=== PATIENT | female | born 1960 | race Caucasian/White ===

== ENCOUNTER 2020-03-22 12:47 | Outpatient (REF) | payer MEDICARE, SELFPAY ==
[2020-03-22 14:03] LABS: MANUAL DIFF FLAG NO
[2020-03-22 14:34] LABS: Estimated Average Glucose 108 mg/dL; Hemoglobin A1c % 5.4 %
[2020-03-22 14:39] LABS: Basophils Percent Auto 0.6 % (0-2); Eosinophils Absolute Auto 0.1 X10*3/uL (0.0-0.4); Eosinophils Percent Auto 1.6 % (0-4); Hematocrit 41.4 % (37-47); Hemoglobin 13.2 g/dl (12.0-16.0); Imm Gran Abs Auto 0.04 X10*3/uL (0.00-0.03); Imm Gran Pct Auto 0.8 % (0.0-0.4); Lymphocytes Absolute Auto 1.6 X10*3/uL (1.2-4.9); Lymphocytes Percent Auto 31.8 % (20-40); Mean Corpuscular HGB Conc 31.9 g/dl (31.0-35.0); Mean Corpuscular Hemoglobin 29.5 pg (27.0-33.0); Mean Corpuscular Volume 92.6 fL (80-98); Monocytes Absolute Auto 0.2 X10*3/uL (0.1-1.2); Monocytes Percent Auto 3.4 % (2-11); Neutrophils Absolute Auto 3.1 X10*3/uL (2.0-8.3); Neutrophils Percent Auto 61.8 % (45-73); Platelet Count 216 X10*3/uL (160-400); Red Blood Count 4.47 X10*6/uL (4.20-5.50); Red Cell Distribution Width 13.2 % (11.0-16.0); White Blood Count 4.9 X10*3/uL (4.8-10.8)
[2020-03-22 15:19] LABS: Anion Gap 11 (12-20); Blood Urea Nitrogen 10 mg/dL (9-16); Calcium 8.8 mg/dL (8.4-10.2); Carbon Dioxide 25 mmol/L (22-29); Chloride 111 mmol/L (96-108); Cholesterol 202 mg/dL; Estimated Glomerular Filt Rate > 60; Glucose Fasting 121 mg/dL (60-99); HDL Cholesterol 41 mg/dL; LDL Cholesterol Calculated 134 mg/dl; Potassium 3.9 mmol/l (3.3-5.1); Sodium 143 mmol/L (135-145); Triglycerides 138 mg/dL
== END 2020-03-22 12:48 | disposition home or self-care (01) ==
LOC: HO.HMGCLDS 12:47
PROVIDERS: PCP Internal Medicine; Visit Provider Internal Medicine
DX: E78.9 Disorder of lipoprotein metabolism, unspecified (principal); F31.9 Bipolar disorder, unspecified; F41.1 Generalized anxiety disorder; R73.03 Prediabetes; G47.00 Insomnia, unspecified; I10 Essential (primary) hypertension
CPT/HCPCS: 36415; 80048; 80061; 83036; 85025

== ENCOUNTER 2020-09-24 13:19 | Outpatient (REF) | payer MEDICARE, SELFPAY ==
[2020-09-24 14:00] LABS: MANUAL DIFF FLAG NO
[2020-09-24 14:05] LABS: Basophils Percent Auto 0.7 % (0-2); Eosinophils Absolute Auto 0.1 X10*3/uL (0.0-0.4); Eosinophils Percent Auto 1.2 % (0-4); Hematocrit 42.2 % (37-47); Hemoglobin 13.7 g/dl (12.0-16.0); Imm Gran Abs Auto 0.01 X10*3/uL (0.00-0.03); Imm Gran Pct Auto 0.2 % (0.0-0.4); Lymphocytes Absolute Auto 1.5 X10*3/uL (1.2-4.9); Lymphocytes Percent Auto 35.2 % (20-40); Mean Corpuscular HGB Conc 32.5 g/dl (31.0-35.0); Mean Corpuscular Hemoglobin 29.1 pg (27.0-33.0); Mean Corpuscular Volume 89.6 fL (80-98); Mean Platelet Volume 9.6 fL (9.4-12.3); Monocytes Absolute Auto 0.1 X10*3/uL (0.1-1.2); Monocytes Percent Auto 3.1 % (2-11); Neutrophils Absolute Auto 2.5 X10*3/uL (2.0-8.3); Neutrophils Percent Auto 59.6 % (45-73); Platelet Count 179 X10*3/uL (160-400); Red Blood Count 4.71 X10*6/uL (4.20-5.50); Red Cell Distribution Width 13.1 % (11.0-16.0); White Blood Count 4.2 X10*3/uL (4.8-10.8)
[2020-09-24 14:19] LABS: Estimated Average Glucose 108 mg/dL; Hemoglobin A1c % 5.4 %
[2020-09-24 14:33] LABS: Alanine Aminotransferase 12 U/L (0-31); Albumin Level 4.3 g/dL (3.5-5.0); Alkaline Phosphatase 60 U/L (39-117); Anion Gap 13 (12-20); Aspartate Amino Transferase 14 U/L (5-31); Bilirubin Total 0.5 mg/dL (0.0-1.0); Blood Urea Nitrogen 12 mg/dL (9-16); Calcium 9.6 mg/dL (8.4-10.2); Carbon Dioxide 23 mmol/L (22-29); Chloride 112 mmol/L (96-108); Estimated Glomerular Filt Rate > 60; Glucose Random 120 mg/dL (60-115); Sodium 144 mmol/L (135-145)
[2020-09-25 08:52] LABS: LDL Cholesterol Direct 124 mg/dL (<100)
== END 2020-09-24 13:20 | disposition home or self-care (01) ==
LOC: HO.HMGCLDS 13:19
PROVIDERS: PCP Internal Medicine; Visit Provider Internal Medicine
DX: E78.9 Disorder of lipoprotein metabolism, unspecified (principal); I10 Essential (primary) hypertension; R73.03 Prediabetes; F33.9 Major depressive disorder, recurrent, unspecified; F41.1 Generalized anxiety disorder
CPT/HCPCS: 36415; 80053; 83036; 83721; 85025

== ENCOUNTER 2021-03-23 11:08 | Outpatient (REF) | payer MEDICARE, SELFPAY ==
--- NOTE | ~2021-03-23 | US_ITS ---
EXAMINATION: US RETROPERITONEAL LIMITED (RENAL ONLY) CLINICAL INFORMATION: Acute right flank pain. COMPARISON: None TECHNIQUE: Renal ultrasound FINDINGS: RIGHT KIDNEY: 12.0 x 4.5 x 5.0 cm (SAG x AP x TRV). The kidney is normal in size, contour, and echogenicity. Renal cortical thickness is normal. No calculi or focal parenchymal lesions. There is mild fullness of the upper collecting system without definite hydronephrosis.. LEFT KIDNEY: 11.5 x 5.0 x 4.8 cm (SAG x AP x TRV). The kidney is normal in size, contour, and echogenicity. Renal cortical thickness is normal. No calculi or focal parenchymal lesions. No hydronephrosis. Urinary bladder was empty. US/US renal BI IMPRESSION: Mild fullness of the right upper collecting system. No renal calculi appreciated..
== END 2021-03-23 11:09 | disposition home or self-care (01) ==
LOC: HO.HMGCX 11:08
PROVIDERS: PCP Internal Medicine; Visit Provider Nurse Practitioner Family
DX: R10.9 Unspecified abdominal pain (principal)
CPT/HCPCS: 76775

== ENCOUNTER 2021-08-13 10:56 | Outpatient (REF) | payer MEDICARE, SELFPAY ==
[2021-08-13 13:13] LABS: MANUAL DIFF FLAG NO
[2021-08-13 13:30] LABS: Eosinophils Percent Auto 0.8 % (0-4); Hematocrit 43.6 % (37.0-47.0); Hemoglobin 14.6 g/dl (12.0-16.0); Imm Gran Abs Auto 0.02 X10*3/uL (0.00-0.03); Imm Gran Pct Auto 0.5 % (0.0-0.4); Lymphocytes Absolute Auto 1.1 X10*3/uL (1.2-4.9); Lymphocytes Percent Auto 28.1 % (20-40); Mean Corpuscular HGB Conc 33.5 g/dl (31.0-35.0); Mean Corpuscular Hemoglobin 29.8 pg (27.0-33.0); Mean Platelet Volume 10.1 fL (9.4-12.3); Monocytes Absolute Auto 0.2 X10*3/uL (0.1-1.2); Monocytes Percent Auto 4.1 % (2-11); Neutrophils Absolute Auto 2.6 x10*3/uL (2.0-8.3); Neutrophils Percent Auto 65.5 % (45-73); Platelet Count 206 X10*3/uL (160-400); Red Cell Distribution Width 12.5 % (11.0-16.0)
[2021-08-13 13:31] LABS: Estimated Average Glucose 108 mg/dL; Hemoglobin A1c % 5.4 %
[2021-08-13 13:34] LABS: Alanine Aminotransferase 16 U/L (0-31); Albumin Level 4.3 g/dL (3.5-5.0); Alkaline Phosphatase 59 U/L (39-117); Anion Gap 13 (12-20); Aspartate Amino Transferase 17 U/L (5-31); Bilirubin Total 0.7 mg/dL (0.0-1.0); Blood Urea Nitrogen 14 mg/dL (9-16); Calcium 9.6 mg/dL (8.4-10.2); Carbon Dioxide 26 mmol/L (22-29); Chloride 103 mmol/L (96-108); Cholesterol 206 mg/dL; Estimated Glomerular Filt Rate 58; Glucose Fasting 132 mg/dL (60-99); HDL Cholesterol 42 mg/dL; LDL Cholesterol Calculated 139 mg/dl; Potassium 4.1 mmol/L (3.3-5.1); Sodium 138 mmol/L (135-145); Total Protein 7.1 g/dL (6.5-8.0); Triglycerides 128 mg/dL
== END 2021-08-13 10:57 | disposition home or self-care (01) ==
LOC: HO.HMGCLDS 10:56
PROVIDERS: PCP Internal Medicine; Visit Provider Internal Medicine
DX: F31.9 Bipolar disorder, unspecified (principal); G47.00 Insomnia, unspecified; I10 Essential (primary) hypertension; R73.03 Prediabetes; E78.9 Disorder of lipoprotein metabolism, unspecified
CPT/HCPCS: 36415; 80053; 80061; 83036; 84443; 85025

== ENCOUNTER 2022-05-02 10:36 | Outpatient (REF) | payer MEDICARE, SELFPAY ==
[2022-05-02 11:40] LABS: MANUAL DIFF FLAG NO
[2022-05-02 11:58] LABS: Basophils Percent Auto 0.8 % (0-2); Eosinophils Absolute Auto 0.1 X10*3/uL (0.0-0.4); Eosinophils Percent Auto 1.3 % (0-4); Hematocrit 41.7 % (37.0-47.0); Hemoglobin 13.9 g/dl (12.0-16.0); Lymphocytes Percent Auto 26.4 % (20-40); Mean Corpuscular HGB Conc 33.3 g/dl (31.0-35.0); Mean Corpuscular Hemoglobin 29.4 pg (27.0-33.0); Mean Corpuscular Volume 88.2 fL (80.0-98.0); Mean Platelet Volume 10.3 fL (9.4-12.3); Monocytes Absolute Auto 0.2 X10*3/uL (0.1-1.2); Monocytes Percent Auto 5.5 % (2-11); Neutrophils Absolute Auto 2.5 x10*3/uL (2.0-8.3); Platelet Count 200 X10*3/uL (160-400); Red Blood Count 4.73 X10*6/uL (4.20-5.50); Red Cell Distribution Width 12.6 % (11.0-16.0); White Blood Count 3.8 X10*3/uL (4.8-10.8)
[2022-05-02 12:19] LABS: Estimated Average Glucose 108 mg/dL; Hemoglobin A1c % 5.4 %
[2022-05-02 12:49] LABS: Alanine Aminotransferase 12 U/L (0-31); Albumin Level 4.3 g/dL (3.5-5.0); Alkaline Phosphatase 60 U/L (39-117); Anion Gap 13 (12-20); Aspartate Amino Transferase 17 U/L (5-31); Bilirubin Total 0.5 mg/dL (0.0-1.0); Blood Urea Nitrogen 17 mg/dL (9-16); Calcium 9.5 mg/dL (8.4-10.2); Carbon Dioxide 32 mmol/L (22-29); Chloride 101 mmol/L (96-108); Cholesterol 172 mg/dL; Estimated Glomerular Filt Rate 55; Glucose Fasting 111 mg/dL (60-99); HDL Cholesterol 38 mg/dL; LDL Cholesterol Calculated 108 mg/dl; Potassium 3.6 mmol/L (3.3-5.1); Sodium 142 mmol/L (135-145); Total Protein 6.7 g/dL (6.5-8.0); Triglycerides 132 mg/dL
== END 2022-05-02 10:37 | disposition home or self-care (01) ==
LOC: HO.HMGCLDS 10:36
PROVIDERS: PCP Internal Medicine; Visit Provider Internal Medicine
DX: F31.9 Bipolar disorder, unspecified (principal); F41.1 Generalized anxiety disorder; G47.00 Insomnia, unspecified; I10 Essential (primary) hypertension; R73.03 Prediabetes
CPT/HCPCS: 36415; 80053; 80061; 83036; 85025

== ENCOUNTER 2022-09-27 14:45 | Outpatient (REF) | payer MEDICARE, SELFPAY ==
--- NOTE | ~2022-09-27 | US_ITS ---
EXAMINATION: US RETROPERITONEAL LIMITED (RENAL ONLY) CLINICAL INFORMATION: Acute right flank pain. COMPARISON: Previous renal ultrasound from 2020 TECHNIQUE: Grayscale and color imaging of the kidneys FINDINGS: RIGHT KIDNEY: 12 x 4 x 6 cm (SAG x AP x TRV). The kidney is normal in size, contour, and echogenicity. Renal cortical thickness is normal. No calculi or focal parenchymal lesions. No hydronephrosis. LEFT KIDNEY: 12 x 5 x 4.6 cm (SAG x AP x TRV). The kidney is normal in size, contour, and echogenicity. Renal cortical thickness is normal. No calculi or focal parenchymal lesions. No hydronephrosis. US/US renal BI IMPRESSION: Unremarkable exam.
== END 2022-09-27 14:46 | disposition home or self-care (01) ==
LOC: HO.HMGCX 14:45
PROVIDERS: PCP Internal Medicine; Visit Provider Internal Medicine
DX: R10.9 Unspecified abdominal pain (principal); R31.9 Hematuria, unspecified
CPT/HCPCS: 76775; 87086

== ENCOUNTER 2022-10-27 10:44 | Outpatient (REF) | payer MEDICARE, SELFPAY ==
[2022-10-27 15:05] LABS: Estimated Average Glucose 100 mg/dL; Hemoglobin A1c % 5.1 %
[2022-10-27 15:15] LABS: Alanine Aminotransferase 15 U/L (0-31); Albumin Level 4.1 g/dL (3.5-5.0); Alkaline Phosphatase 59 U/L (39-117); Anion Gap 11 (12-20); Aspartate Amino Transferase 16 U/L (5-31); Bilirubin Total 0.4 mg/dL (0.0-1.0); Blood Urea Nitrogen 17 mg/dL (9-16); Calcium 9.4 mg/dL (8.4-10.2); Carbon Dioxide 29 mmol/L (22-29); Chloride 103 mmol/L (96-108); Estimated Glomerular Filt Rate > 60; Glucose Random 97 mg/dL (60-115); Potassium 4.2 mmol/L (3.3-5.1); Sodium 139 mmol/L (135-145); Total Protein 6.9 g/dL (6.5-8.0)
== END 2022-10-27 10:45 | disposition home or self-care (01) ==
LOC: HO.HMGCLDS 10:44
PROVIDERS: PCP Internal Medicine; Visit Provider Internal Medicine
DX: E66.9 Obesity, unspecified (principal); F31.9 Bipolar disorder, unspecified; F41.1 Generalized anxiety disorder; G47.00 Insomnia, unspecified; I10 Essential (primary) hypertension; R73.03 Prediabetes
CPT/HCPCS: 36415; 80053; 83036

== ENCOUNTER 2022-10-31 11:17 | Outpatient (AMB) | payer MEDICARE, SELFPAY ==
[2022-10-31 11:25] VITALS: BP 142/84; PULSE 68; O2SAT 96
--- NOTE | 2022-10-31 11:25 | A.OFFPC_ITS ---
Vital Signs 10/31/22 11:25 Height 5 ft 6 in BP 142/84 H Blood Pressure Location Lt brachial Position Sitting Pulse 68 Pulse Source Pulse Oximeter Pulse Oximetry (%) 96 Oxygen Delivery Method Room Air Intake Visit Reasons: Annual PE Allergies No Known Allergies [No Known Allergies*] Allergy (Verified 10/31/22 11:25) Medication List - Last Reconciled 10/31/22 by Odin Marie MD atenolol 25 mg PO DAILY 90 days lisinopril 10 mg PO DAILY 90 days lorazepam 1 mg PO BID 30 days morphine ER 60 mg PO BID nitrofurantoin monohyd/m-cryst 100 mg (Macrobid) 100 mg PO Q12H 5 days oxycodone 5 mg PO BID PRN pravastatin 80 mg PO DAILY 90 days quetiapine (Seroquel) 100 mg PO TID 90 days Tobacco use date assessed: 10/31/22 Dental Screening Dental Screen Date: 10/31/22 Did you have a dental visit in the last 12 months?: Yes Did you have a dental problem in the last 6 months where you did not have access to dental care?: No Was dental information given to patient?: No HPI Annual PE HPI Details Patient is 62-year-old female came in today for her physical exam Patient is due for mammogram order placed Colonoscopy was 7 years ago patient says that she is due in 2025 Patient had hysterectomy secondary to fibroid she no longer having Pap smears. Blood pressure is slightly elevated today at 01:42 systolic we will continue to monitor she is taking all her medications regularly Labs done recently reviewed with the patient All psychiatric medications through Psychiatry Have difficulty losing weight BMI is elevated Requesting a started in powder for tenia corporis which I have sent for her Follow-up 6 month physical exam 1 year [facility] Medical History Anxiety, generalized Bipolar 1 disorder Depression, major, recurrent Hypertension, essential Insomnia Lipid disorder Obesity Postlaminectomy kyphosis Pre-diabetes Surgical History History of colonoscopy History of hernia repair History of lumbar fusion History of partial hysterectomy Hx of discectomy Family History Father HTN (hypertension) Alzheimer's disease Mother No problems noted. Brother No problems noted. Sister No problems noted. Maternal Grandfather No problems noted. Maternal Grandmother No problems noted. Paternal Grandfather No problems noted. Paternal Grandmother No problems noted. Social History Housing: Condominium Alcohol intake: never Patient Tobacco Use Status: Never used Tobacco e-Cigarette/Vaping Use: Never Used Second Hand Smoke Exposure: No service: No Current occupational status: retired Cognitive needs: No Hearing needs: No Vision needs: No Questionnaire Thrive Questionnaire Date Thrive assessed: 05/02/22 AUDIT C Alcohol Use Questionnaire (AUDIT-C) 1. How often do you have a drink containing alcohol?: Never 3. How often do you have six or more drinks on one occasion?: Never Total Score: 0 Score Reviewed/Action Taken: Yes HUSEYIN-7 AMB Questionnaire HUSEYIN-7 Date HUSEYIN - 7 assessed: 05/02/22 Source: Developed by Drs. Tani Haq, Nayely Mccoy, Frantz Mauro and colleagues, with an educational adam from [employer]. Review of Systems Const Denies chills, Denies fever(s) and Denies headache(s) Eyes Denies blurry vision ENT Denies headache(s), Denies nasal discharge, Denies nasal obstruction, Denies odynophagia and Denies sinus pain Card Denies chest pain at rest and Denies chest pain with activity Resp Denies cough and Denies hemoptysis GI Denies diarrhea, Denies odynophagia, Denies vomiting and Denies hematemesis Reports as per HPI Musc Denies abnormal gait Skin/Breast Reports as per HPI Neuro Denies Neuro-related abnormal movements, Denies Abnormal speech present, Denies abnormal gait, Denies headache(s) and Denies Sensory deficit (Neuro) Psych Denies mood swings and Denies paranoia Endo Reports as per HPI Kike/Lymph Reports as per HPI Aller/Immun Reports as per HPI Physical exam (Primary Care) Vital Signs: Last Vital Signs Pulse 68 10/31/22 11:25 BP 142/84 H 10/31/22 11:25 Pulse Ox 96 10/31/22 11:25 Oxygen Delivery Method Room Air 10/31/22 11:25 Tobacco/Smoking Status: Tobacco use Status Tobacco use date assessed 10/31/22 10/31/22 11:26 Patient Tobacco Use Status Never used Tobacco 10/31/22 11:26 e-Cigarette/Vaping Use Never Used 10/31/22 11:26 Thrive Assessment: Date of Thrive Assessment Date Thrive assessed 05/02/22 10/31/22 11:26 Const General: cooperative, comfortable and no acute distress Orientation/consciousness: patient oriented x3 HENMT Head: Yes normocephalic and Yes atraumatic Eyes General: appearance normal, both eyes and all related structures Pupils: Equal, round and reactive pupils present EOM: EOMs intact bilaterally Neck Neck: Yes supple and No lymphadenopathy Thyroid: Thyroid normal Lymphatic: no lymphadenopathy noted Chest Breast/axilla palpation: normal palpation of the breasts Resp Effort & Inspection: normal respiratory effort and able to speak in complete sentences Auscultation: clear to auscultation bilaterally Cardio Heart sounds: S1 normal heart sound present and S2 normal heart sound present GI Palpation (GI): Soft to palpation and nontender Auscultation: normal bowel sounds General: Yes no CVA tenderness Back/Spine/Pelvis Back: no CVA tenderness Skin General skin exam: elasticity normal and turgor normal Neuro General: patient oriented x3 and gait normal Cranial nerves: Yes Equal, round and reactive pupils present Speech: No Abnormal speech present Sensory Exam: No Sensory deficit (Neuro) Coordination: tandem gait normal and Romberg test negative Extrem General: Yes normal exam except as noted and No edema Assessment and Plan Assessment & Plan (1) Encounter for general adult medical examination with abnormal findings: Code(s): Z00.01 - Encounter for general adult medical examination with abnormal findings (2) Hypertension, essential: Code(s): I10 - Essential (primary) hypertension (3) Pre-diabetes: Code(s): R73.03 - Prediabetes (4) Depression, major, recurrent: Code(s): F33.9 - Major depressive disorder, recurrent, unspecified (5) Bipolar 1 disorder: Code(s): F31.9 - Bipolar disorder, unspecified (6) Insomnia: Code(s): G47.00 - Insomnia, unspecified (7) Anxiety, generalized: Code(s): F41.1 - Generalized anxiety disorder (8) Obesity: Code(s): E66.9 - Obesity, unspecified Plan Patient is 62-year-old female came in today for her physical exam Patient is due for mammogram order placed Colonoscopy was 7 years ago patient says that she is due in 2025 Patient had hysterectomy secondary to fibroid she no longer having Pap smears. Blood pressure is slightly elevated today at 01:42 systolic we will continue to monitor she is taking all her medications regularly Labs done recently reviewed with the patient All psychiatric medications through Psychiatry Have difficulty losing weight BMI is elevated Requesting a started in powder for tenia corporis which I have sent for her Follow-up 6 month physical exam 1 year Orders: Orders MM tomosynthesis screening BI Today Z12.31 - Encounter for screening mammogram for malignant neoplasm of breast Medications: New nystatin 1 appl topical DAILY 60 grams 2RF 30 days B35.4 - Tinea corporis Coding Level of Care Code Est Pt Prev Care 40-64y(49922) Diagnoses Encounter for general adult medical examination with abnormal findings Z00.01 Hypertension, essential I10 Pre-diabetes R73.03 Depression, major, recurrent F33.9 Bipolar 1 disorder F31.9 Insomnia G47.00 Anxiety, generalized F41.1 Obesity E66.9
== END 2022-10-31 11:47 | disposition home or self-care (01) ==
PROVIDERS: Visit Provider Internal Medicine
DX: Z00.01 Encounter for general adult medical examination with abnormal findings (principal); I10 Essential (primary) hypertension; R73.03 Prediabetes; F33.9 Major depressive disorder, recurrent, unspecified; F31.9 Bipolar disorder, unspecified; G47.00 Insomnia, unspecified; F41.1 Generalized anxiety disorder; E66.9 Obesity, unspecified
CPT/HCPCS: 99396

== ENCOUNTER 2023-05-01 10:00 | Outpatient (AMB) | payer MEDICARE, SELFPAY ==
--- NOTE | 2023-05-01 10:05 | A.OFFPC_ITS ---
Vital Signs 05/01/23 10:06 Height 5 ft 6 in BMI Reason not done Patient refused/unable BP 130/80 Blood Pressure Location Lt brachial Position Sitting Pulse 62 Pulse Source Pulse Oximeter Pulse Oximetry (%) 96 Oxygen Delivery Method Room Air Intake Visit Reasons: 6 MON FUP + DISCUSS COLOGUARD Allergies No Known Allergies [No Known Allergies*] Allergy (Verified 05/01/23 10:05) Medication List - Last Reconciled 05/01/23 by Odin Marie MD atenolol 25 mg PO DAILY 90 days lisinopril 10 mg PO DAILY 90 days lorazepam 1 mg PO BID 30 days morphine ER 60 mg PO BID nystatin 1 appl topical DAILY 30 days oxycodone 5 mg PO BID PRN pravastatin 80 mg PO DAILY 90 days quetiapine (Seroquel) 100 mg PO TID 90 days Tobacco use date assessed: 05/01/23 Fall risk assessment: 1 Fall in past year Last assessed Fall Risk: 05/01/23 Dental Screening Dental Screen Date: 05/01/23 Did you have a dental visit in the last 12 months?: Yes Did you have a dental problem in the last 6 months where you did not have access to dental care?: No Was dental information given to patient?: Patient has dentist HPI 6 MON FUP + DISCUSS COLOGUARD HPI Details Patient is a 63-year-old female came in today for her regular appointment Patient is due for colonoscopy but she does not want to do that She said that since the age of 49 she has done 3 of them, 1st time she had a colonoscopy polyps were found So she ended up having colonoscopy again in 3 years which did not show any polyps, and then again in 3 years which also did not show any polyps She is requesting Cologuard test Patient had twisted her right ankle end of March and encountered a fracture she is currently seeing Dr. Burger at [facility] and have a splint on Hypertension: Blood pressure is stable patient is on lisinopril 10 mg , and atenolol 25 mg daily Lipid disorder: Continue pravastatin 80 mg daily. Labs are due order placed Today she is sitting in a wheelchair we did not do a weight She is seeing psychiatrist Dr. Quan Hubbard in [place] for her psychiatric medications Follow-up 4 months [facility] Medical History Bipolar 1 disorder Depression, major, recurrent Postlaminectomy kyphosis Obesity Pre-diabetes Insomnia Anxiety, generalized Lipid disorder Hypertension, essential Surgical History History of colonoscopy History of hernia repair History of partial hysterectomy Hx of discectomy History of lumbar fusion Family History Father HTN (hypertension) Alzheimer's disease Mother No problems noted. Brother No problems noted. Sister No problems noted. Maternal Grandfather No problems noted. Maternal Grandmother No problems noted. Paternal Grandfather No problems noted. Paternal Grandmother No problems noted. Social History Housing: Condominium Alcohol intake: never Patient Tobacco Use Status: Never used Tobacco e-Cigarette/Vaping Use: Never Used Second Hand Smoke Exposure: No service: No Current occupational status: retired Cognitive needs: No Hearing needs: No Vision needs: No Questionnaire Thrive Questionnaire Date Thrive assessed: 05/02/22 AUDIT C Alcohol Use Questionnaire (AUDIT-C) 1. How often do you have a drink containing alcohol?: Never 3. How often do you have six or more drinks on one occasion?: Never Total Score: 0 Score Reviewed/Action Taken: Yes HUSEYIN-7 AMB Questionnaire HUSEYIN-7 Date HUSEYIN - 7 assessed: 05/02/22 Source: Developed by Drs. Tani Haq, Nayely Mccoy, Frantz Mauro and colleagues, with an educational adam from [employer]. Review of Systems Const Denies chills and Denies fever(s) ENT Denies epistaxis and Denies nasal discharge Card Denies chest pain Resp Denies chest congestion, Denies cough and Denies hemoptysis GI Denies diarrhea and Denies nausea Skin/Breast Denies rash Neuro Reports no additional complaints Psych Reports no additional complaints Endo Reports no additional complaints Physical exam (Primary Care) Vital Signs: Last Vital Signs Pulse 62 05/01/23 10:06 BP 130/80 05/01/23 10:06 Pulse Ox 96 05/01/23 10:06 Oxygen Delivery Method Room Air 05/01/23 10:06 Tobacco/Smoking Status: Tobacco use Status Tobacco use date assessed 05/01/23 05/01/23 10:07 Patient Tobacco Use Status Never used Tobacco 05/01/23 10:07 e-Cigarette/Vaping Use Never Used 05/01/23 10:07 Thrive Assessment: Date of Thrive Assessment Date Thrive assessed 05/02/22 05/01/23 10:07 Const General: cooperative, comfortable and no acute distress Orientation/consciousness: patient oriented x3 HENMT Head: Yes normocephalic Eyes General: appearance normal, both eyes and all related structures Neck Neck: Yes supple Resp Effort & Inspection: normal respiratory effort, no cough and no stridor Cardio Rhythm: regular rhythm Heart sounds: S1 normal heart sound present and S2 normal heart sound present Skin General skin exam: turgor normal Neuro General: patient oriented x3, tone normal and moves all extremities Assessment and Plan Assessment & Plan (1) Hypertension, essential: Code(s): I10 - Essential (primary) hypertension (2) Lipid disorder: Code(s): E78.9 - Disorder of lipoprotein metabolism, unspecified (3) Anxiety, generalized: Code(s): F41.1 - Generalized anxiety disorder (4) Insomnia: Code(s): G47.00 - Insomnia, unspecified Qualifiers: Insomnia type: unspecified Qualified Code(s): G47.00 - Insomnia, unspecified (5) Pre-diabetes: Code(s): R73.03 - Prediabetes (6) Depression, major, recurrent: Code(s): F33.9 - Major depressive disorder, recurrent, unspecified Qualifiers: Active/Remission status: in partial remission Qualified Code(s): F33.41 - Major depressive disorder, recurrent, in partial remission (7) Bipolar 1 disorder: Code(s): F31.9 - Bipolar disorder, unspecified Plan Patient is a 63-year-old female came in today for her regular appointment Patient is due for colonoscopy but she does not want to do that She said that since the age of 49 she has done 3 of them, 1st time she had a colonoscopy polyps were found So she ended up having colonoscopy again in 3 years which did not show any polyps, and then again in 3 years which also did not show any polyps She is requesting Cologuard test Patient had twisted her right ankle end of March and encountered a fracture she is currently seeing Dr. Burger at [facility] and have a splint on Hypertension: Blood pressure is stable patient is on lisinopril 10 mg , and at enolol 25 mg daily Lipid disorder: Continue pravastatin 80 mg daily. Labs are due order placed Today she is sitting in a wheelchair we did not do a weight She is seeing psychiatrist Dr. Quan Hubbard in [place] for her psychiatric medications Follow-up 4 months Orders: Orders Complete Blood Count Auto Diff Today E78.9 - Disorder of lipoprotein metabolism, unspecified, F31.9 - Bipolar disorder, unspecified, F33.9 - Major depressive disorder, recurrent, unspecified, F41.1 - Generalized anxiety disorder, G47.00 - Insomnia, unspecified, I10 - Essential (primary) hypertension, R73.03 - Prediabetes LDL Cholesterol Direct Today E78.9 - Disorder of lipoprotein metabolism, unspecified, F31.9 - Bipolar disorder, unspecified, F33.9 - Major depressive disorder, recurrent, unspecified, F41.1 - Generalized anxiety disorder, G47.00 - Insomnia, unspecified, I10 - Essential (primary) hypertension, R73.03 - Prediabetes Comprehensive Met. Panel Today E78.9 - Disorder of lipoprotein metabolism, unspecified, F31.9 - Bipolar disorder, unspecified, F33.9 - Major depressive disorder, recurrent, unspecified, F41.1 - Generalized anxiety disorder, G47.00 - Insomnia, unspecified, I10 - Essential (primary) hypertension, R73.03 - Pred iabetes Referrals Cologuard Test Z12.11 - Encounter for screening for malignant neoplasm of colon Coding Level of Care Code Est Pt Level 4 (69261) Diagnoses Hypertension, essential I10 Lipid disorder E78.9 Anxiety, generalized F41.1 Insomnia, unspecified type G47.00 Insomnia type: unspecified Pre-diabetes R73.03 Recurrent major depressive disorder, in partial remission F33.41 Active/Remission status: in partial remission Bipolar 1 disorder F31.9
[2023-05-01 10:06] VITALS: BP 130/80; PULSE 62; O2SAT 96
== END 2023-05-01 10:39 | disposition home or self-care (01) ==
PROVIDERS: PCP Internal Medicine; Visit Provider Internal Medicine
DX: I10 Essential (primary) hypertension (principal); F33.41 Major depressive disorder, recurrent, in partial remission; E78.9 Disorder of lipoprotein metabolism, unspecified; F41.1 Generalized anxiety disorder; G47.00 Insomnia, unspecified; R73.03 Prediabetes
CPT/HCPCS: 99214

== ENCOUNTER 2023-05-01 10:40 | Outpatient (REF) | payer MEDICARE, SELFPAY ==
[2023-05-01 13:29] LABS: MANUAL DIFF FLAG NO
[2023-05-01 13:36] LABS: Basophils Percent Auto 0.5 % (0-2); Eosinophils Percent Auto 0.7 % (0-4); Hematocrit 36.1 % (37.0-47.0); Hemoglobin 11.9 g/dl (12.0-16.0); Imm Gran Abs Auto 0.02 X10*3/uL (0.00-0.03); Imm Gran Pct Auto 0.5 % (0.0-0.4); Lymphocytes Absolute Auto 1.3 X10*3/uL (1.2-4.9); Mean Corpuscular Hemoglobin 30.4 pg (27.0-33.0); Mean Corpuscular Volume 92.3 fL (80.0-98.0); Mean Platelet Volume 10.1 fL (9.4-12.3); Monocytes Absolute Auto 0.2 X10*3/uL (0.1-1.2); Monocytes Percent Auto 5.4 % (2-11); Neutrophils Absolute Auto 2.7 x10*3/uL (2.0-8.3); Neutrophils Percent Auto 62.9 % (45-73); Platelet Count 209 X10*3/uL (160-400); Red Blood Count 3.91 X10*6/uL (4.20-5.50); Red Cell Distribution Width 13.2 % (11.0-16.0); White Blood Count 4.2 X10*3/uL (4.8-10.8)
[2023-05-01 15:03] LABS: Alanine Aminotransferase 12 U/L (0-31); Albumin Level 4.1 g/dL (3.5-5.0); Alkaline Phosphatase 62 U/L (39-117); Anion Gap 12 (12-20); Aspartate Amino Transferase 16 U/L (5-31); Bilirubin Total 0.3 mg/dL (0.0-1.0); Blood Urea Nitrogen 15 mg/dL (9-16); Calcium 9.2 mg/dL (8.4-10.2); Carbon Dioxide 29 mmol/L (22-29); Chloride 104 mmol/L (96-108); Estimated Glomerular Filt Rate > 60; Glucose Random 110 mg/dL (60-115); Potassium 3.9 mmol/L (3.3-5.1); Sodium 141 mmol/L (135-145); Total Protein 6.7 g/dL (6.5-8.0)
[2023-05-03 19:34] LABS: LDL Cholesterol Direct 80 mg/dL (<100)
== END 2023-05-01 10:41 | disposition home or self-care (01) ==
LOC: HO.HMGCLDS 10:40
PROVIDERS: PCP Internal Medicine; Visit Provider Internal Medicine
DX: I10 Essential (primary) hypertension (principal); E78.9 Disorder of lipoprotein metabolism, unspecified; F41.1 Generalized anxiety disorder; G47.00 Insomnia, unspecified; R73.03 Prediabetes; F33.9 Major depressive disorder, recurrent, unspecified
CPT/HCPCS: 36415; 80053; 83721; 85025

== ENCOUNTER 2023-09-07 11:55 | Outpatient (AMB) | payer MEDICARE, SELFPAY ==
[2023-09-07 11:59] VITALS: BP 132/84; PULSE 74; O2SAT 97; BMI 35.6
--- NOTE | 2023-09-07 11:59 | MHC.PC.OV ---
Vital Signs 09/07/23 11:59 Height 5 ft 6 in Weight 220 lb 6 oz BMI 35.6 BP 132/84 Blood Pressure Location Lt brachial Position Sitting Pulse 74 Pulse Source Pulse Oximeter Pulse Oximetry (%) 97 Oxygen Delivery Method Room Air Intake Visit Reasons: F/u Missed appt 08/28 Allergies No Known Allergies [No Known Allergies*] Allergy (Verified 09/07/23 12:01) Medication List - Last Reconciled 09/07/23 by Odin Marie MD atenolol 25 mg PO DAILY 90 days lisinopril 10 mg PO DAILY 90 days lorazepam 1 mg PO BID 30 days morphine ER 60 mg PO BID nystatin 1 appl topical DAILY 30 days oxycodone 5 mg PO BID PRN pravastatin 80 mg PO DAILY 90 days quetiapine (Seroquel) 100 mg PO TID 90 days Tobacco use date assessed: 09/07/23 Fall risk assessment: No Falls in past year Last assessed Fall Risk: 09/07/23 Dental Screening Dental Screen Date: 09/07/23 Did you have a dental visit in the last 12 months?: Yes Did you have a dental problem in the last 6 months where you did not have access to dental care?: No Was dental information given to patient?: Patient has dentist HPI F/u Missed appt 08/28 HPI Details Patient is a 63-year-old female came in today for her regular appointment Patient suffers from bipolar disorder depression, anxiety She is currently seeing psychiatrist and is taking all her psychiatric medications through them including lorazepam It seems as if patient has taken more than prescribed of lorazepam and she is now asking me for few tablets Tried to explain patient that I can not prescribe this medication, then she insisted that if I can give her Xanax or Valium I would advise for her to call the psychiatrist and explained the situation to him. But I can not send any such medication for her I did send in buspirone few tablets to help her with anxiety. Her psychiatrist is Dr. Quan Hubbard in [place] Hypertension: Blood pressure is stable patient is on lisinopril 10 mg , and atenolol 25 mg daily Lipid disorder: Continue pravastatin 80 mg daily. Last set of labs were in April she is due for labs Follow-up November [facility] Medical History Bipolar 1 disorder Depression, major, recurrent Postlaminectomy kyphosis Obesity Pre-diabetes Insomnia Anxiety, generalized Lipid disorder Hypertension, essential Surgical History History of colonoscopy History of hernia repair History of partial hysterectomy Hx of discectomy History of lumbar fusion Family History Father HTN (hypertension) Alzheimer's disease Mother No problems noted. Brother No problems noted. Sister No problems noted. Maternal Grandfather No problems noted. Maternal Grandmother No problems noted. Paternal Grandfather No problems noted. Paternal Grandmother No problems noted. Social History Housing: Condominium Alcohol intake: never Patient Tobacco Use Status: Never used Tobacco e-Cigarette/Vaping Use: Never Used Second Hand Smoke Exposure: No service: No Current occupational status: retired Cognitive needs: No Hearing needs: No Vision needs: No Questionnaire PHQ-9 Over the last 2 weeks, how often have you been bothered by any of the following problems? 3. Trouble falling or staying asleep, or sleeping too much: more than half the days 9. Thoughts that you would be better off or of hurting yourself in some way: not at all [id number] - PHQ-9 Billing: Yes Source: Developed by Drs. Tani Haq, Nayely Mccoy, Frantz Mauro and colleagues, with an educational adam from [employer]. Thrive Questionnaire Date Thrive assessed: 09/07/23 I am a: Patient What is your living situation today?: I have a steady place to live Within the past 12 months, did the food you bought not last and you didn't have the money to get more?: Never true Within the past 12 months, did you worry whether your food would run out before you got money to buy more?: Never true Do you have trouble paying for medicines?: No Do you have trouble getting transportation to medical appointments?: No Do you have trouble paying your heating and electricity bill?: No Do you have trouble taking care of your child, family member or friend?: No Do you have trouble with day-to-day activities such as bathing, preparing meals, shopping, managing finances, etc.?: No Are you currently unemployed and looking for a job?: No Are you interested in more education?: No Please select the resources that you would like help with: None Currently or been in a relationship where the following occur: no concerns reported THRIVE Score: 0 AUDIT C Alcohol Use Questionnaire (AUDIT-C) 1. How often do you have a drink containing alcohol?: Never 3. How often do you have six or more drinks on one occasion?: Never Total Score: 0 Score Reviewed/Action Taken: Yes HUSEYIN-7 AMB Questionnaire HUSEYIN-7 Date HUSEYIN - 7 assessed: 09/07/23 Feeling nervous, anxious, or on edge: 1 = Several days Not being able to stop or control worryin = Several days Worrying too much about different things: 1 = Several days Trouble relaxin = Several days Being so restless that it is hard to sit still: 1 = Several days Becoming easily annoyed or irritable: 1 = Several days Feeling afraid as if something awful might happen: 1 = Several days Total HUSEYIN-7 score (0-4 normal; 5-9 mild; 10-14 moderate; 15-21 severe): 7 Source: Developed by Drs. Tani Haq, aNyely Mccoy, Frantz Mauro and colleagues, with an educational adam from [employer]. HUSEYIN-7 Assessment Billing HUSEYIN-7 Assessment Tool: HUSEYIN-7 Assessment 07003 Review of Systems Const Denies chills and Denies fever(s) ENT Denies epistaxis and Denies nasal discharge Card Denies chest pain Resp Denies chest congestion, Denies cough and Denies hemoptysis GI Denies diarrhea and Denies nausea Skin/Breast Denies rash Neuro Reports no additional complaints Psych Reports no additional complaints Endo Reports no additional complaints Physical exam (Primary Care) Vital Signs: Last Vital Signs Pulse 74 09/07/23 11:59 BP 132/84 09/07/23 11:59 Pulse Ox 97 09/07/23 11:59 Oxygen Delivery Method Room Air 09/07/23 11:59 BMI result Body Mass Index 35.6 Tobacco/Smoking Status: Tobacco use Status Tobacco use date assessed 09/07/23 09/07/23 12:03 Patient Tobacco Use Status Never used Tobacco 09/07/23 12:01 e-Cigarette/Vaping Use Never Used 09/07/23 12:01 Thrive Assessment: Date of Thrive Assessment Date Thrive assessed 09/07/23 09/07/23 12:21 Currently or been in a relationship where the following occur: no concerns reported Const General: cooperative, comfortable and no acute distress Orientation/consciousness: patient oriented x3 HENMT Head: Yes normocephalic Eyes General: appearance normal, both eyes and all related structures Neck Neck: Yes supple Resp Effort & Inspection: normal respiratory effort, no cough and no stridor Cardio Rhythm: regular rhythm Heart sounds: S1 normal heart sound present and S2 normal heart sound present Skin General skin exam: turgor normal Neuro General: patient oriented x3, tone normal and moves all extremities Assessment and Plan Assessment & Plan (1) Anxiety, generalized: Code(s): F41.1 - Generalized anxiety disorder (2) Hypertension, essential: Code(s): I10 - Essential (primary) hypertension (3) Lipid disorder: Code(s): E78.9 - Disorder of lipoprotein metabolism, unspecified (4) Pre-diabetes: Code(s): R73.03 - Prediabetes (5) Obesity: Code(s): E66.9 - Obesity, unspecified Qualifiers: Body mass index: BMI 35.0-35.9 Obesity classification: adult class 2 (BMI 35 - 39.9) Obesity type: due to excess calories Serious obesity comorbidity presence: with serious comorbidity Qualified Code(s): E66.01 - Morbid (severe) obesity due to excess calories; Z68.35 - Body mass index [BMI] 35.0-35.9, adult (6) Depression, major, recurrent: Code(s): F33.9 - Major depressive disorder, recurrent, unspecified Qualifiers: Active/Remission status: in partial remission Qualified Code(s): F33.41 - Major depressive disorder, recurrent, in partial remission (7) Bipolar 1 disorder: Code(s): F31.9 - Bipolar disorder, unspecified Plan Patient is a 63-year-old female came in today for her regular appointment Patient suffers from bipolar disorder depression, anxiety She is currently seeing psychiatrist and is taking all her psychiatric medications through them including lorazepam It seems as if patient has taken more than prescribed of lorazepam and she is now asking me for few tablets Tried to explain patient that I can not prescribe this medication, then she insisted that if I can give her Xanax or Valium I would advise for her to call the psychiatrist and explained the situation to him. But I can not send any such medication for her I did send in buspirone few tablets to help her with anxiety. Her psychiatrist is Dr. Quan Hubbard in [place] Hypertension: Blood pressure is stable patient is on lisinopril 10 mg , and atenolol 25 mg daily Lipid disorder: Continue pravastatin 80 mg daily. Last set of labs were in April she is due for labs Follow-up November Orders: Orders Complete Blood Count Auto Diff Today E66.9 - Obesity, unspecified, E78.9 - Disorder of lipoprotein metabolism, unspecified, I10 - Essential (primary) hypertension, R73.03 - Prediabetes Comprehensive Met. Panel Today E66.9 - Obesity, unspecified, E78.9 - Disorder of lipoprotein metabolism, unspecified, I10 - Essential (primary) hypertension, R73.03 - Prediabetes LDL Cholesterol Direct Today E66.9 - Obesity, unspecified, E78.9 - Disorder of lipoprotein metabolism, unspecified, I10 - Essential (primary) hypertension, R73.03 - Prediabetes Medications: New buspirone 10 mg PO TID 7 days PRN 21 tabs 0RF anxiety Coding Level of Care Code Tele Est Pt Level 4 (14943) Complex EM visit Add On G2211 Diagnoses Anxiety, generalized F41.1 Hypertension, essential I10 Lipid disorder E78.9 Pre-diabetes R73.03 Class 2 severe obesity due to excess calories with serious comorbidity and body mass index (BMI) of 35.0 to 35.9 in adult E66.01; Z68.35 Body mass index: BMI 35.0-35.9 Obesity classification: adult class 2 (BMI 35 - 39.9) Obesity type: due to excess calories Serious obesity comorbidity presence: with serious comorbidity Recurrent major depressive disorder, in partial remission F33.41 Active/Remission status: in partial remission Bipolar 1 disorder F31.9 Additional Codes HUSEYIN-7 Assessment Billing - HUSEYIN-7 Assessment Tool: HUSEYIN-7 Assessment [id number] ([id number])
== END 2023-09-07 12:49 | disposition home or self-care (01) ==
LOC: HO.HMGC 11:55
PROVIDERS: PCP Internal Medicine; Visit Provider Internal Medicine
DX: I10 Essential (primary) hypertension (principal); E66.01 Morbid (severe) obesity due to excess calories; F31.9 Bipolar disorder, unspecified; Z68.35 Body mass index [BMI] 35.0-35.9, adult; F41.1 Generalized anxiety disorder; E78.9 Disorder of lipoprotein metabolism, unspecified; R73.03 Prediabetes
CPT/HCPCS: 99214; G2211

== ENCOUNTER 2023-12-25 09:37 | Outpatient (AMB) | payer MEDICARE, SELFPAY ==
[2023-12-25 09:39] VITALS: BP 126/84; PULSE 72; O2SAT 98; BMI 36.4
--- NOTE | 2023-12-25 09:39 | A.OFFPC_ITS ---
Vital Signs 3 12/25/23 09:39 Height 5 ft 6 in Weight 225 lb 4 oz BMI 36.4 BP 126/84 Blood Pressure Location Lt brachial Position Sitting Pulse 72 Pulse Source Pulse Oximeter Pulse Oximetry (%) 98 Oxygen Delivery Method Room Air Intake Visit Reasons: 8 month follow up Allergies No Known Allergies [No Known Allergies*] Allergy (Verified 12/25/23 09:42) Medication List - Last Reconciled 12/25/23 by Odin Marie MD atenolol 25 mg PO DAILY 90 days buspirone 10 mg PO TID PRN 7 days lisinopril 10 mg PO DAILY 90 days lorazepam 1 mg PO BID 30 days morphine ER 60 mg PO BID nystatin 1 appl topical DAILY 30 days oxycodone 5 mg PO BID PRN pravastatin 80 mg PO DAILY 90 days quetiapine (Seroquel) 100 mg PO TID 90 days Tobacco use date assessed: 12/25/23 Fall risk assessment: No Falls in past year Last assessed Fall Risk: 12/25/23 Dental Screening Dental Screen Date: 12/25/23 Did you have a dental visit in the last 12 months?: Yes Did you have a dental problem in the last 6 months where you did not have access to dental care?: No Was dental information given to patient?: Patient has dentist HPI 8 month follow up 2 HPI0 Details Patient is a 63-year-old female came in today for her regular appointment Patient was supposed to do labs before this visit, it seems as if she forgot She will have it done today 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 She also tells me that redness is chronic I am booking her appointment with the hand specialist to further evaluate that Patient suffers from bipolar disorder depression, anxiety She is currently seeing psychiatrist and is taking all her psychiatric medications through them including lorazepam Her psychiatrist is Dr. Quan Hubbard in [place] Hypertension: Blood pressure is stable patient is on lisinopril 10 mg , and atenolol 25 mg daily Lipid disorder: Continue pravastatin 80 mg daily. Follow-up 3 months [facility] Medical History Bipolar 1 disorder Depression, major, recurrent Postlaminectomy kyphosis Obesity Pre-diabetes Insomnia Anxiety, generalized Lipid disorder Hypertension, essential Surgical History History of colonoscopy History of hernia repair History of partial hysterectomy Hx of discectomy History of lumbar fusion Family History Father HTN (hypertension) Alzheimer's disease Mother No problems noted. Brother No problems noted. Sister No problems noted. Maternal Grandfather No problems noted. Maternal Grandmother No problems noted. Paternal Grandfather No problems noted. Paternal Grandmother No problems noted. Social History Housing: Condominium Alcohol intake: never Patient Tobacco Use Status: Never used Tobacco e-Cigarette/Vaping Use: Never Used Second Hand Smoke Exposure: No service: No Current occupational status: retired Cognitive needs: No Hearing needs: No Vision needs: No Questionnaire Thrive Questionnaire Date Thrive assessed: 09/07/23 AUDIT C Alcohol Use Questionnaire (AUDIT-C) 1. How often do you have a drink containing alcohol?: Never 3. How often do you have six or more drinks on one occasion?: Never Total Score: 0 Score Reviewed/Action Taken: Yes HUSEYIN-7 AMB Questionnaire HUSEYIN-7 Date HUSEYIN - 7 assessed: 09/07/23 Source: Developed by Drs. Tani Haq, Nayely Mccoy, Frantz Mauro and colleagues, with an educational adam from [employer]. Review of Systems Const Denies chills and Denies fever(s) ENT Denies epistaxis and Denies nasal discharge Card Denies chest pain Resp Denies chest congestion, Denies cough and Denies hemoptysis GI Denies diarrhea and Denies nausea Skin/Breast Denies rash Neuro Reports no additional complaints Psych Reports no additional complaints Endo Reports no additional complaints Physical exam (Primary Care) Vital Signs: Last Vital Signs Pulse 72 12/25/23 09:39 BP 126/84 12/25/23 09:39 Pulse Ox 98 12/25/23 09:39 Oxygen Delivery Method Room Air 12/25/23 09:39 BMI result Body Mass Index 36.4 Tobacco/Smoking Status: Tobacco use Status Tobacco use date assessed 12/25/23 12/25/23 09:42 Patient Tobacco Use Status Never used Tobacco 12/25/23 09:42 e-Cigarette/Vaping Use Never Used 12/25/23 09:42 Thrive Assessment: Date of Thrive Assessment Date Thrive assessed 09/07/23 12/25/23 09:42 Const General: cooperative, comfortable and no acute distress Orientation/consciousness: patient oriented x3 HENMT Head: Yes normocephalic Eyes General: appearance normal, both eyes and all related structures Neck Neck: Yes supple Resp Effort & Inspection: normal respiratory effort, no cough and no stridor Cardio Rhythm: regular rhythm Heart sounds: S1 normal heart sound present and S2 normal heart sound present Skin General skin exam: turgor normal Neuro General: patient oriented x3, tone normal and moves all extremities Extrem Hand/finger images: 2 1. Erythema, range of motion intact, vascular intact sensory intact Right lower extremity: no edema Left lower extremity: no edema Assessment and Plan Assessment & Plan (1) Anxiety, generalized: Code(s): F41.1 - Generalized anxiety disorder (2) Hand pain, right: Code(s): M79.641 - Pain in right hand (3) Hypertension, essential: Code(s): I10 - Essential (primary) hypertension (4) Lipid disorder: Code(s): E78.9 - Disorder of lipoprotein metabolism, unspecified (5) Pre-diabetes: Code(s): R73.03 - Prediabetes (6) Obesity: Code(s): E66.9 - Obesity, unspecified Qualifiers: Body mass index: BMI 35.0-35.9 Obesity classification: adult class 2 (BMI 35 - 39.9) Obesity type: due to excess calories Serious obesity comorbidity presence: with serious comorbidity Qualified Code(s): E66.01 - Morbid (severe) obesity due to excess calories; Z68.35 - Body mass index [BMI] 35.0-35.9, adult (7) Depression, major, recurrent: Code(s): F33.9 - Major depressive disorder, recurrent, unspecified Qualifiers: Active/Remission status: in partial remission Qualified Code(s): F33.41 - Major depressive disorder, recurrent, in partial remission (8) Bipolar 1 disorder: Code(s): F31.9 - Bipolar disorder, unspecified Plan Patient is a 63-year-old female came in today for her regular appointment Patient was supposed to do labs before this visit, it seems as if she forgot She will have it done today 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 She also tells me that redness is chronic I am booking her appointment with the hand specialist to further evaluate that Patient suffers from bipolar disorder depression, anxiety She is currently seeing psychiatrist and is taking all her psychiatric medications through them including lorazepam Her psychiatrist is Dr. Quan Hubbard in [place] Hypertension: Blood pressure is stable patient is on lisinopril 10 mg , and atenolol 25 mg daily Lipid disorder: Continue pravastatin 80 mg daily. Follow-up 3 months Orders: Referrals 2 Orthopedics Referral M79.641 - Pain in right hand Coding Level of Care Code Est Pt Level 4 (56791) Complex EM visit Add On G2211 Diagnoses Anxiety, generalized F41.1 Hand pain, right M79.641 Hypertension, essential I10 Lipid disorder E78.9 Pre-diabetes R73.03 Class 2 severe obesity due to excess calories with serious comorbidity and body mass index (BMI) of 35.0 to 35.9 in adult E66.01; Z68.35 Body mass index: BMI 35.0-35.9 Obesity classification: adult class 2 (BMI 35 - 39.9) Obesity type: due to excess calories Serious obesity comorbidity presence: with serious comorbidity Recurrent major depressive disorder, in partial remission F33.41 Active/Remission status: in partial remission Bipolar 1 disorder F31.9
== END 2023-12-25 09:56 | disposition home or self-care (01) ==
PROVIDERS: PCP Internal Medicine; Visit Provider Internal Medicine
DX: F41.1 Generalized anxiety disorder (principal); M79.641 Pain in right hand; I10 Essential (primary) hypertension; E78.9 Disorder of lipoprotein metabolism, unspecified; R73.03 Prediabetes; E66.01 Morbid (severe) obesity due to excess calories; Z68.35 Body mass index [BMI] 35.0-35.9, adult; F33.41 Major depressive disorder, recurrent, in partial remission; F31.9 Bipolar disorder, unspecified

== ENCOUNTER → 2023-12-25 09:37 | Outpatient (BNVA) | payer MEDICARE, SELFPAY | PROVIDERS: PCP Internal Medicine; Visit Provider Internal Medicine ==

== ENCOUNTER 2023-12-25 09:55 | Outpatient (REF) | payer MEDICARE, SELFPAY ==
[2023-12-25 13:42] LABS: MANUAL DIFF FLAG NO
[2023-12-25 13:50] LABS: Basophils Percent Auto 0.8 % (0-2); Eosinophils Percent Auto 0.8 % (0-4); Hematocrit 38.9 % (37.0-47.0); Hemoglobin 13.3 g/dl (12.0-16.0); Imm Gran Abs Auto 0.02 X10*3/uL (0.00-0.03); Imm Gran Pct Auto 0.5 % (0.0-0.4); Lymphocytes Percent Auto 25.8 % (20-40); Mean Corpuscular HGB Conc 34.2 g/dl (31.0-35.0); Mean Corpuscular Hemoglobin 31.5 pg (27.0-33.0); Mean Corpuscular Volume 92.2 fL (80.0-98.0); Mean Platelet Volume 9.8 fL (9.4-12.3); Monocytes Absolute Auto 0.2 X10*3/uL (0.1-1.2); Monocytes Percent Auto 5.4 % (2-11); Neutrophils Absolute Auto 2.6 x10*3/uL (2.0-8.3); Neutrophils Percent Auto 66.7 % (45-73); Platelet Count 182 X10*3/uL (160-400); Red Blood Count 4.22 X10*6/uL (4.20-5.50); Red Cell Distribution Width 12.3 % (11.0-16.0); White Blood Count 3.9 X10*3/uL (4.8-10.8)
[2023-12-25 14:23] LABS: Alanine Aminotransferase 18 U/L (0-31); Albumin Level 4.3 g/dL (3.5-5.0); Alkaline Phosphatase 54 U/L (39-117); Anion Gap 12 (12-20); Aspartate Amino Transferase 20 U/L (5-31); Bilirubin Total 0.4 mg/dL (0.0-1.0); Blood Urea Nitrogen 13 mg/dL (9-16); Calcium 10.2 mg/dL (8.4-10.2); Carbon Dioxide 34 mmol/L (22-29); Chloride 99 mmol/L (96-108); Estimated Glomerular Filt Rate 51; Glucose Random 104 mg/dL (60-115); Potassium 3.5 mmol/L (3.3-5.1); Sodium 141 mmol/L (135-145); Total Protein 6.9 g/dL (6.5-8.0)
[2023-12-27 07:53] LABS: LDL Cholesterol Direct 131 mg/dL (<100)
== END 2023-12-25 09:56 | disposition home or self-care (01) ==
LOC: HO.HMGCLDS 09:55
PROVIDERS: PCP Internal Medicine; Visit Provider Internal Medicine
DX: I10 Essential (primary) hypertension (principal); E78.9 Disorder of lipoprotein metabolism, unspecified; M79.641 Pain in right hand; R73.03 Prediabetes; E66.01 Morbid (severe) obesity due to excess calories; F41.1 Generalized anxiety disorder; F31.9 Bipolar disorder, unspecified; Z68.35 Body mass index [BMI] 35.0-35.9, adult
CPT/HCPCS: 36415; 80053; 83721; 85025; 99212

== ENCOUNTER 2024-01-08 08:44 | Outpatient (REF) | payer MEDICARE, SELFPAY ==
--- NOTE | ~2024-01-08 | XR_ITS ---
EXAMINATION: XR HAND, RIGHT CLINICAL INFORMATION: Pain in right hand COMPARISON: None available. TECHNIQUE: PA, lateral, and oblique views of the right hand. FINDINGS: The bones and soft tissues are normal. No fracture. Alignment is anatomic. Joint spaces are maintained. No erosions or soft tissue calcifications. XR/XR hand RT min 3V IMPRESSION: Normal right hand. Electronically signed by: Pancho Luna MD 01/14/2024 01:40 PM EDT RP
== END 2024-01-08 08:45 | disposition home or self-care (01) ==
LOC: HO.HOSX 08:44
DX: M79.641 Pain in right hand (principal); R23.8 Other skin changes
CPT/HCPCS: 73130; 99202

== ENCOUNTER 2024-01-08 09:31 | Outpatient (AMB) | payer MEDICARE, SELFPAY ==
--- NOTE | 2024-01-08 09:47 | MHC.OFFVIS ---
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 She was referred by Odin Marie for swelling in the right hand. Patient reports she has mild pain some days in her hand. She says her hand has been swollen for a few years. She is having swelling and redness located at the MCPs and PIPs of her right hand. Denies any past medical treatment to right hand, numbness and tingling. 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 The patient reports that she has noticed this redness and swelling for many years, but states that it never caused her any pain, and she felt this was just something she had to live with, but states that her primary care provider felt it would be worthwhile for her to be evaluated in our office for potential arthritis or other causes of this redness and swelling. Today, the patient reports that this area of the hand is completely painless, and then she has full and intact range of motion of her right hand. Patient denies any numbness or tingling in the right hand. 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 No other acute complaints or concerns at this time. [facility] Medical History Bipolar 1 disorder Depression, major, recurrent Postlaminectomy kyphosis Obesity Pre-diabetes Insomnia Anxiety, generalized Lipid disorder Hypertension, essential Surgical History History of colonoscopy History of hernia repair History of partial hysterectomy Hx of discectomy History of lumbar fusion Family History Father HTN (hypertension) Alzheimer's disease Mother No problems noted. Brother No problems noted. Sister No problems noted. Maternal Grandfather No problems noted. Maternal Grandmother No problems noted. Paternal Grandfather No problems noted. Paternal Grandmother No problems noted. Social History Housing: Condominium Alcohol intake: never Patient Tobacco Use Status: Never used Tobacco e-Cigarette/Vaping Use: Never Used Second Hand Smoke Exposure: No service: No Current occupational status: retired Cognitive needs: No Hearing needs: No Vision needs: No Review of Systems Const All systems reviewed & are unremarkable except as noted in HPI and below Physical Exam Vital Signs: BMI result Body Mass Index 36.3 Extrem Other: Patient is alert, oriented, and in no acute distress. Neuro: Normal sensation of the tips of all digits of the right hand at this time Vascular: Cap refill brisk Pain: Patient reports no tenderness to palpation of the digits right hand No tenderness to palpation of the dorsal and volar aspects of the palm of the Range of motion of the right hand is full painless ROM: Patient is able make a closed fist and extend all digits of the right hand fully without difficulty Skin: No lacerations or abrasions. General: There is noted to be some erythema noted , primarily over the dorsal MCP joints of the 3rd, 4th, 5th digits, and extending both into the dorsal aspect of the palm and into the proximal middle, ring, and small fingers. No warmth noted to palpation No ecchymosis No other evidence of infection noted Psych: Appears grossly normal Affect normal Attitude cooperative Results Reviewed Results Reviewed: X-rays obtained in the office today and independently reviewed by me, Moe Monroy PA-C, demonstrate no fracture or acute bony abnormality of the right hand. Assessment & Plan Assessment & Plan (1) Skin irritation: Code(s): R23.8 - Other skin changes Category: Medical Plan 1. 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
[2024-01-08 09:49] VITALS: BMI 36.3
== END 2024-01-08 10:19 | disposition home or self-care (01) ==
PROVIDERS: PCP Internal Medicine
DX: R23.8 Other skin changes (principal)
CPT/HCPCS: 99203

== ENCOUNTER 2024-02-29 09:51 | Outpatient (AMB) | payer MEDICARE, SELFPAY ==
[2024-02-29 09:53] VITALS: BP 128/80; PULSE 80; O2SAT 96; BMI 37.2
--- NOTE | 2024-02-29 09:53 | A.OFFPC_ITS ---
Vital Signs 02/29/24 09:53 Height 5 ft 6 in Weight 230 lb 6 oz BMI 37.2 BP 128/80 Blood Pressure Location Lt brachial Position Sitting Pulse 80 Pulse Source Pulse Oximeter Pulse Oximetry (%) 96 Oxygen Delivery Method Room Air Intake Visit Reasons: 3MoFollowUp Allergies No Known Allergies [No Known Allergies*] Allergy (Verified 02/29/24 09:53) Medication List - Last Reconciled 02/29/24 by Odin Marie MD atenolol 25 mg PO DAILY 90 days buspirone 10 mg PO TID PRN 7 days lisinopril 10 mg PO DAILY 90 days lorazepam 1 mg PO BID 30 days morphine ER 60 mg PO BID nystatin 1 appl topical DAILY 30 days oxycodone 5 mg PO BID PRN pravastatin 80 mg PO DAILY 90 days quetiapine (Seroquel) 100 mg PO TID 90 days Tobacco use date assessed: 02/29/24 Fall risk assessment: No Falls in past year Last assessed Fall Risk: 02/29/24 Dental Screening Dental Screen Date: 02/29/24 Did you have a dental visit in the last 12 months?: Yes Did you have a dental problem in the last 6 months where you did not have access to dental care?: No Was dental information given to patient?: Patient has dentist HPI 3MoFollowUp HPI Details Chief Complaint Patient presents for management of chronic medical problems Assessment and Plan 63-year-old female with a history of chr onic back pain, elevated LDL cholesterol, and prediabetes presenting for medication management. During the visit, laboratory results from December indicated stable CBC and kidney functions, though cholesterol levels have increased slightly, with LDL rising from 80 to 131 since April. The patient is on pravastatin 80 mg daily for ch olesterol management and understands the importance of adherence. She inquires about Wegovy for potential weight loss but lacks definitive comorbid conditions like obesity, diabetes, or heart conditions required for insurance coverage. The patient is scheduled for a spinal injection next week under pain management. She is concerned about medication impacts on kidney function after learning of inte rmittent ibuprofen use. Depression status and psychiatric care were reviewed; no changes made during this visit. 1. Prediabetes Reinforce lifestyle interventions, including diet and exercise, to prevent progression to diabetes. Continue monitoring with no pharmacological intervention necessary at this stage. 2. Medication Management Concerns Plan to verify coverage for Wegovy with insurance due to criteria requirements. Initiate lab work to check thyroid and pancreatic enzymes before Wegovy initiation pending insurance approval. 3. Depression Continue monitoring symptoms as part of multidisciplinary care, including psychiatric evaluations. Address concerns about psychiatrist's potential skilled nursing directly. 4. Elevated Ldl Cholesterol Continue pravastatin 80 mg daily. Maintain current lipid management while monitoring cholesterol levels closely. Encourage dietary measures and physical activity to aid lipid control. 5. Chronic Back Pain Continue current pain management under the care of Dr. Hampton in [place]. Scheduled spinal injection for further symptomatic relief. Avoid NSAIDs such as ibuprofen to prevent renal complications. Emphasize non- pharmacologic measures for pain relief. 6. Hypertension stable continue medicati on Problem List - Chronic Back Pain - Elevated LDL Cholesterol - Prediabetes - Depression - Medication Management Concerns - obesity - hypertension Patient Instructions - Continue current medications and follo w pain management recommendations. - Limit NSAIDs use; prefer acetaminophen for pain relief. - Maintain dietary and exercise regimens to manage LDL cholesterol and prediabetes. - Discuss psychiatrist's skilled nursing and plan future psychiatric care appropriately. - Monitor for pharmacy communication reg arding Wegovy coverage. Call to schedule an instructional session if approved. - Complete thyroid and pancreatic enzyme testing if Wegovy is approved. - Contact the office for any concerns or changes in health status. [facility] Medical History Bipolar 1 disorder Depression, major, recurrent Postlaminectomy kyphosis Obesity Pre-diabetes Insomnia Anxiety, generalized Lipid disorder Hypertension, essential Surgical History History of colonoscopy History of hernia repair History of partial hysterectomy Hx of discectomy History of lumbar fusion Family History Father HTN (hypertension) Alzheimer's disease Mother No problems noted. Brother No problems noted. Sister No problems noted. Maternal Grandfather No problems noted. Maternal Grandmother No problems noted. Paternal Grandfather No problems noted. Paternal Grandmother No problems noted. Social History Housing: Condominium Alcohol intake: never Patient Tobacco Use Status: Never used Tobacco e-Cigarette/Vaping Use: Never Used Second Hand Smoke Exposure: No service: No Current occupational status: retired Cognitive needs: No Hearing needs: No Vision needs: No Questionnaire Thrive Questionnaire Date Thrive assessed: 09/07/23 AUDIT C Alcohol Use Questionnaire (AUDIT-C) 1. How often do you have a drink containing alcohol?: Never 3. How often do you have six or more drinks on one occasion?: Never Total Score: 0 Score Reviewed/Action Taken: Yes HUSEYIN-7 AMB Questionnaire HUSEYIN-7 Date HUSEYIN - 7 assessed: 09/07/23 Source: Developed by Drs. Tani Haq, Nayely Mccoy, Frantz Mauro and colleagues, with an educational adam from [employer]. Review of Systems Const Denies chills and Denies fever(s) ENT Denies epistaxis and Denies nasal discharge Card Denies chest pain Resp Denies chest congestion, Denies cough and Denies hemoptysis GI Denies diarrhea and Denies nausea Skin/Breast Denies rash Neuro Reports no additional complaints Psych Reports no additional complaints Endo Reports no additional complaints Physical exam (Primary Care) Vital Signs: Last Vital Signs Pulse 80 02/29/24 09:53 BP 128/80 02/29/24 09:53 Pulse Ox 96 02/29/24 09:53 Oxygen Delivery Method Room Air 02/29/24 09:53 BMI result Body Mass Index 37.2 Tobacco/Smoking Status: Tobacco use Status Tobacco use date assessed 02/29/24 02/29/24 10:01 Patient Tobacco Use Status Never used Tobacco 02/29/24 10:01 e-Cigarette/Vaping Use Never Used 02/29/24 10:01 Thrive Assessment: Date of Thrive Assessment Date Thrive assessed 09/07/23 02/29/24 10:01 Const General: cooperative, comfortable and no acute distress Orientation/consciousness: patient oriented x3 HENMT Head: Yes normocephalic Eyes General: appearance normal, both eyes and all related structures Neck Neck: Yes supple Resp Effort & Inspection: normal respiratory effort, no cough and no stridor Cardio Rhythm: regular rhythm Heart sounds: S1 normal heart sound present and S2 normal heart sound present Skin General skin exam: turgor normal Neuro General: patient oriented x3, tone normal and moves all extremities Extrem Right lower extremity: no edema Left lower extremity: no edema Coding Level of Care Code Est Pt Level 4 (25452) Complex EM visit Add On G2211 Diagnoses Hypertension, essential I10 Lipid disorder E78.9 Anxiety, generalized F41.1 Insomnia, unspecified type G47.00 Insomnia type: unspecified Pre-diabetes R73.03 Recurrent major depressive disorder, in partial remission F33.41 Active/Remission status: in partial remission Class 2 severe obesity due to excess calories with serious comorbidity and body mass index (BMI) of 35.0 to 35.9 in adult E66.01; Z68.35 Body mass index: BMI 35.0-35.9 Obesity classification: adult class 2 (BMI 35 - 39.9) Obesity type: due to excess calories Serious obesity comorbidity presence: with serious comorbidity Assessment & Plan Assessment & Plan (1) Hypertension, essential: Code(s): I10 - Essential (primary) hypertension Category: Medical (2) Lipid disorder: Code(s): E78.9 - Disorder of lipoprotein metabolism, unspecified Category: Medical (3) Anxiety, generalized: Code(s): F41.1 - Generalized anxiety disorder Category: Medical (4) Insomnia: Code(s): G47.00 - Insomnia, unspecified Category: Medical Qualifiers: Insomnia type: unspecified Qualified Code(s): G47.00 - Insomnia, unspecified (5) Pre-diabetes: Code(s): R73.03 - Prediabetes Category: Medical (6) Depression, major, recurrent: Code(s): F33.9 - Major depressive disorder, recurrent, unspecified Category: Medical Qualifiers: Active/Remission status: in partial remission Qualified Code(s): F33.41 - Major depressive disorder, recurrent, in partial remission (7) Obesity: Code(s): E66.9 - Obesity, unspecified Category: Medical Qualifiers: Body mass index: BMI 35.0-35.9 Obesity classification: adult class 2 (BMI 35 - 39.9) Obesity type: due to excess calories Serious obesity comorbidity presence: with serious comorbidity Qualified Code(s): E66.01 - Morbid (severe) obesity due to excess calories; Z68.35 - Body mass index [BMI] 35.0-35.9, adult Plan Chief Complaint Patient presents for management of chronic medical problems Assessment and Plan 63-year-old female with a history of chronic back pain, elevated LDL cholesterol, and prediabetes presenting for medication management. During the visit, laboratory results from December indicated stable CBC and kidney functions, though cholesterol levels have increased slightly, with LDL rising from 80 to 131 since April. The patient is on pravastatin 80 mg daily for cholesterol management and understands the importance of adherence. She inquires about Wegovy for potential weight loss but lacks definitive comorbid conditions like obesity, diabetes, or heart conditions required for insurance coverage. The patient is scheduled for a spinal injection next week under pain management. She is concerned about medication impacts on kidney function after learning of intermittent ibuprofen use. Depression status and psychiatric care were reviewed; no changes made during this visit. 1. Prediabetes Reinforce lifestyle interventions, including diet and exercise, to prevent progression to diabetes. Continue monitoring with no pharmacological intervention necessary at this stage. 2. Medication Management Concerns Plan to verify coverage for Wegovy with insurance due to criteria requirements. Initiate lab work to check thyroid and pancreatic enzymes before Wegovy initiation pending insurance approval. 3. Depression Continue monitoring symptoms as part of multidisciplinary care, including psychiatric evaluations. Address concerns about psychiatrist's potential skilled nursing directly. 4. Elevated Ldl Cholesterol Continue pravastatin 80 mg daily. Maintain current lipid management while monitoring cholesterol levels closely. Encourage dietary measures and physical activity to aid lipid control. 5. Chronic Back Pain Continue current pain management under the care of Dr. Hampton in [place]. Scheduled spinal injection for further symptomatic relief. Avoid NSAIDs such as ibuprofen to prevent renal complications. Emphasize non- pharmacologic measures for pain relief. 6. Hypertension stable continue medication Problem List - Chronic Back Pain - Elevated LDL Cholesterol - Prediabetes - Depression - Medication Management Concerns - obesity - hypertension Patient Instructions - Continue current medications and follow pain management recommendations. - Limit NSAIDs use; prefer acetaminophen for pain relief. - Maintain dietary and exercise regimens to manage LDL cholesterol and prediabetes. - Discuss psychiatrist's skilled nursing and plan future psychiatric care appropriately. - Monitor for pharmacy communication regarding Wegovy coverage. Call to schedule an instructional session if approved. - Complete thyroid and pancreatic enzyme testing if Wegovy is approved. - Contact the office for any concerns or changes in health status. Orders: Orders Complete Blood Count Auto Diff Today E78.9 - Disorder of lipoprotein metabolism, unspecified, F33.41 - Major depressive disorder, recurrent, in partial remission, F41.1 - Generalized anxiety disorder, G47.00 - Insomnia, unspecified, I10 - Essential (primary) hypertension, R73.03 - Prediabetes LDL Cholesterol Direct Today E78.9 - Disorder of lipoprotein metabolism, unspecified, F33.41 - Major depressive disorder, recurrent, in partial remission, F41.1 - Generalized anxiety disorder, G47.00 - Insomnia, unspecified, I10 - Essential (primary) hypertension, R73.03 - Prediabetes Hemoglobin A1c Today E78.9 - Disorder of lipoprotein metabolism, unspecified, F33.41 - Major depressive disorder, recurrent, in partial remission, F41.1 - Generalized anxiety disorder, G47.00 - Insomnia, unspecified, I10 - Essential (primary) hypertension, R73.03 - Prediabetes Amylase Today E78.9 - Disorder of lipoprotein metabolism, unspecified, F33.41 - Major depressive disorder, recurrent, in partial remission, F41.1 - Generalized anxiety disorder, G47.00 - Insomnia, unspecified, I10 - Essential (primary) hypertension, R73.03 - Prediabetes Comprehensive Met. Panel Today E78.9 - Disorder of lipoprotein metabolism, unspecified, F33.41 - Major depressive disorder, recurrent, in partial remission, F41.1 - Generalized anxiety disorder, G47.00 - Insomnia, unspecified, I10 - Essential (primary) hypertension, R73.03 - Prediabetes Lipase Today E78.9 - Disorder of lipoprotein metabolism, unspecified, F33.41 - Major depressive disorder, recurrent, in partial remission, F41.1 - Generalized anxiety disorder, G47.00 - Insomnia, unspecified, I10 - Essential (primary) hypertension, R73.03 - Prediabetes TSH reflex Free T4 Today E78.9 - Disorder of lipoprotein metabolism, unspecified, F33.41 - Major depressive disorder, recurrent, in partial remission, F41.1 - Generalized anxiety disorder, G47.00 - Insomnia, unspecified, I10 - Essential (primary) hypertension, R73.03 - Prediabetes Medications: New semaglutide for 4 weeks 0.25 mg (0.368 mL) subcut QWEEK 30 days 2 mL 0RF E66.01 - Morbid (severe) obesity due to excess calories, E78.9 - Disorder of lipoprotein metabolism, unspecified, I10 - Essential (primary) hypertension, R73.03 - Prediabetes, Z68.35 - Body mass index [BMI] 35.0-35.9, adult semaglutide for 4 weeks 0.25 mg (0.368 mL) subcut QWEEK 2 mL 0RF 30 days E66.01 - Morbid (severe) obesity due to excess calories, E78.9 - Disorder of lipoprotein metabolism, unspecified, I10 - Essential (primary) hypertension, R73.03 - Prediabetes, Z68.35 - Body mass index [BMI] 35.0-35.9, adult
== END 2024-02-29 10:19 | disposition home or self-care (01) ==
PROVIDERS: PCP Internal Medicine; Visit Provider Internal Medicine
DX: I10 Essential (primary) hypertension (principal); F33.41 Major depressive disorder, recurrent, in partial remission; Z68.35 Body mass index [BMI] 35.0-35.9, adult; E66.01 Morbid (severe) obesity due to excess calories; E78.9 Disorder of lipoprotein metabolism, unspecified; F41.1 Generalized anxiety disorder; G47.00 Insomnia, unspecified; R73.03 Prediabetes

== ENCOUNTER → 2024-02-29 09:51 | Outpatient (BNVA) | payer MEDICARE, SELFPAY | PROVIDERS: PCP Internal Medicine; Visit Provider Internal Medicine | DX: I10 Essential (primary) hypertension (principal); E78.9 Disorder of lipoprotein metabolism, unspecified; F41.1 Generalized anxiety disorder; F33.41 Major depressive disorder, recurrent, in partial remission; R73.03 Prediabetes; E66.01 Morbid (severe) obesity due to excess calories; Z68.35 Body mass index [BMI] 35.0-35.9, adult | CPT/HCPCS: 99212 ==

== ENCOUNTER 2024-06-11 11:12 | Outpatient (REF) | payer MEDICARE, SELFPAY ==
[2024-06-11 13:32] LABS: MANUAL DIFF FLAG NO
[2024-06-11 13:36] LABS: Basophils Percent Auto 0.9 % (0-2); Eosinophils Absolute Auto 0.1 X10*3/uL (0.0-0.4); Eosinophils Percent Auto 1.1 % (0-4); Hematocrit 41.3 % (37.0-47.0); Hemoglobin 13.5 g/dl (12.0-16.0); Imm Gran Abs Auto 0.02 X10*3/uL (0.00-0.03); Imm Gran Pct Auto 0.4 % (0.0-0.4); Lymphocytes Absolute Auto 1.6 X10*3/uL (1.2-4.9); Mean Corpuscular HGB Conc 32.7 g/dl (31.0-35.0); Mean Corpuscular Hemoglobin 30.4 pg (27.0-33.0); Mean Platelet Volume 9.8 fL (9.4-12.3); Monocytes Absolute Auto 0.2 X10*3/uL (0.1-1.2); Monocytes Percent Auto 4.2 % (2-11); Neutrophils Absolute Auto 2.6 x10*3/uL (2.0-8.3); Neutrophils Percent Auto 58.4 % (45-73); Platelet Count 188 X10*3/uL (160-400); Red Blood Count 4.44 X10*6/uL (4.20-5.50); Red Cell Distribution Width 13.1 % (11.0-16.0); White Blood Count 4.5 X10*3/uL (4.8-10.8)
[2024-06-11 13:48] LABS: Estimated Average Glucose 105 mg/dL; Hemoglobin A1C 121.8934 umol/L; Hemoglobin A1c % 5.3 % (<6.0)
[2024-06-11 14:02] LABS: Alanine Aminotransferase 23 U/L (0-31); Albumin Level 4.3 g/dL (3.5-5.0); Alkaline Phosphatase 60 U/L (39-117); Amylase 28 U/L (28-100); Anion Gap 13 (12-20); Aspartate Amino Transferase 20 U/L (5-31); Bilirubin Total 0.4 mg/dL (0.0-1.0); Blood Urea Nitrogen 21 mg/dL (9-16); Calcium 9.8 mg/dL (8.4-10.2); Carbon Dioxide 31 mmol/L (22-29); Chloride 100 mmol/L (96-108); Estimated Glomerular Filt Rate 51; Glucose Random 114 mg/dL (60-115); Lipase 7 U/L (8-78); Potassium 3.9 mmol/L (3.3-5.1); Sodium 140 mmol/L (135-145); Total Protein 7.4 g/dL (6.5-8.0)
[2024-06-11 14:07] LABS: TSH reflex Free T4 1.87 uIU/mL (0.32-4.0)
--- OUTSIDE RECORDS SUMMARY | 2024-06-11 14:10 | XMS_ITS | Clinical Summary ---
Author Organization [facility] it Address [address] [place] [address] Care Team Providers Care Bus System Operator Name Role Phone Codey Romero MD [...] age to complete this topic Care Teams Bus System Operator Relationship Specialty Start Date End Date Codey Romero MD PCP - General 05/20/04
[2024-06-12 15:33] LABS: LDL Cholesterol Direct 134 mg/dL (<100)
== END 2024-06-11 11:13 | disposition home or self-care (01) ==
LOC: HO.HMGCLDS 11:12
PROVIDERS: PCP Internal Medicine; Visit Provider Internal Medicine
DX: I10 Essential (primary) hypertension (principal); E78.9 Disorder of lipoprotein metabolism, unspecified; F41.1 Generalized anxiety disorder; G47.00 Insomnia, unspecified; R73.03 Prediabetes; F33.41 Major depressive disorder, recurrent, in partial remission; E66.01 Morbid (severe) obesity due to excess calories; Z68.35 Body mass index [BMI] 35.0-35.9, adult; Z79.899 Other long term (current) drug therapy
CPT/HCPCS: 36415; 80053; 82150; 83036; 83690; 83721; 84443; 85025; 99212

== ENCOUNTER 2024-06-11 11:12 | Outpatient (AMB) | payer MEDICARE, SELFPAY ==
--- NOTE | 2024-06-11 11:17 | MHC.PC.OV ---
Vital Signs 06/11/24 11:18 Height 5 ft 6 in Weight 221 lb BMI 35.7 BP 110/78 Blood Pressure Location Lt brachial Position Sitting Respiration 17 Pulse 78 Pulse Source Pulse Oximeter Temp 98.8 F Temp Source Oral Pulse Oximetry (%) 98 Oxygen Delivery Method Room Air Intake Visit Reasons: 3 months f/up Allergies No Known Allergies [No Known Allergies*] Allergy (Verified 06/11/24 11:19) Medication List - Last Reconciled 06/11/24 by Odin Marie MD atenolol 25 mg PO DAILY 90 days buspirone 10 mg PO TID PRN 7 days lisinopril 10 mg PO DAILY 90 days lorazepam 1 mg PO BID 30 days morphine ER 60 mg PO BID nystatin 1 appl topical DAILY 30 days oxycodone 5 mg PO BID PRN pravastatin 80 mg PO DAILY 90 days quetiapine (Seroquel) 100 mg PO TID 90 days semaglutide 0.25 mg (0.368 mL) subcut QWEEK 30 days Tobacco use date assessed: 06/11/24 Fall risk assessment: No Falls in past year Last assessed Fall Risk: 06/11/24 Dental Screening Dental Screen Date: 06/11/24 Did you have a dental visit in the last 12 months?: Yes Did you have a dental problem in the last 6 months where you did not have access to dental care?: No Was dental information given to patient?: Patient has dentist HPI 3 months f/up HPI Details History - The patient is a 64-year-old female presenting with concerns regarding insurance coverage for semaglutide for weight loss management. - She has experienced denial from her insurance provider for semaglutide, prescribed for weight loss, despite its availability for diabetes management. - Previous lab results indicated fluctuating kidney function with a glomerular filtration rate varying from the 50s to 60s. Last labs done in December showed GFR of 54 - Hyperlipidemia is noted, with LDL cholesterol level at 131, a deterioration from prior assessments. - The patient reports no significant depressive symptoms with ongoing management. - blood pressure is 110/78, continue lisinopril - lipid disorder continue pravastatin 80 mg patient is tolerating medication - psychiatric illness med inch by Psychiatry - patient is also established with pain management for chronic pain and is on morphine 60 mg b.i.d. Problem List - Difficulty obtaining insurance coverage for semaglutide (Wegovy/Ozempic) - Pre-diabetes - Hyperlipidemia - Fluctuating kidney function - lipid disorder - hypertension - psychiatric illness - chronic pain syndrome - obesity Patient Instructions - Explore options for obtaining semaglutide and check with different pharmacies regarding drug coverage. - Consider participation in a weight loss program if medication coverage remains an issue. - Monitor dietary habits to manage cholesterol levels. - Complete lab work today for current evaluation of kidney and liver function. - Attend the scheduled follow-up appointment in October for a physical exam and further discussion of medication management. - continue all medication as prescribed Review of Systems - General: No fever no chills - Neurological: No headaches no dizziness - Ear nose throat: No sore throat no hearing difficulty no ear pain - Cardiovascular: No syncope, no chest pain, no palpitations - Gastrointestinal: No nausea vomiting or diarrhea - Endocrine: No polyuria polydipsia no heat intolerance - Genitourinary: No dysuria , no blood in urine Physical Exam General: No acute distress HEENT: No acute findings Neck: Supple Respiratory system: Able to talk in full sentences, no audible wheeze cardiovascular: S1-S2 regular in rate and rhythm Gastrointestinal: No pain Extremities: Right ankle healing, better but still some issues COGNOS TM1 DEVELOPER: Alert awake oriented x3 motor sensory intact Skin: Normal turgor PFSH Medical History Bipolar 1 disorder Depression, major, recurrent Postlaminectomy kyphosis Obesity Pre-diabetes Insomnia Anxiety, generalized Lipid disorder Hypertension, essential Surgical History History of colonoscopy History of hernia repair History of partial hysterectomy Hx of discectomy History of lumbar fusion Family History Father HTN (hypertension) Alzheimer's disease Mother No problems noted. Brother No problems noted. Sister No problems noted. Maternal Grandfather No problems noted. Maternal Grandmother No problems noted. Paternal Grandfather No problems noted. Paternal Grandmother No problems noted. Social History Housing: Condominium Alcohol intake: never Patient Tobacco Use Status: Never used Tobacco e-Cigarette/Vaping Use: Never Used Second Hand Smoke Exposure: No service: No Current occupational status: retired Cognitive needs: No Hearing needs: No Vision needs: No Questionnaire PHQ-9 Over the last 2 weeks, how often have you been bothered by any of the following problems? 34563 - PHQ-9 Billing: Patient declined-do not bill Source: Developed by Drs. Tani Haq, Nayely Mccoy, Frantz Mauro and colleagues, with an educational adam from [employer]. Thrive Questionnaire Date Thrive assessed: 09/07/23 HUSEYIN-7 AMB Questionnaire HUSEYIN-7 Date HUSEYIN - 7 assessed: 09/07/23 Source: Developed by Drs. Tani Haq, Nayely Mccoy, Frantz Mauro and colleagues, with an educational adam from [employer]. Physical exam (Primary Care) Vital Signs: Last Vital Signs Temp 98.8 F 06/11/24 11:18 Pulse 78 06/11/24 11:18 Resp 17 06/11/24 11:18 BP 110/78 06/11/24 11:18 Pulse Ox 98 06/11/24 11:18 Oxygen Delivery Method Room Air 06/11/24 11:18 BMI result Body Mass Index 35.7 Tobacco/Smoking Status: Tobacco use Status Tobacco use date assessed 06/11/24 06/11/24 11:22 Patient Tobacco Use Status Never used Tobacco 06/11/24 11:22 e-Cigarette/Vaping Use Never Used 06/11/24 11:22 Thrive Assessment: Date of Thrive Assessment Date Thrive assessed 09/07/23 06/11/24 11:22 Coding Level of Care Code Est Pt Level 4 (39585) Complex EM visit Add On G2211 Diagnoses Hypertension, essential I10 Lipid disorder E78.9 Anxiety, generalized F41.1 Insomnia, unspecified type G47.00 Insomnia type: unspecified Pre-diabetes R73.03 Recurrent major depressive disorder, in partial remission F33.41 Active/Remission status: in partial remission Class 2 severe obesity due to excess calories with serious comorbidity and body mass index (BMI) of 35.0 to 35.9 in adult E66.01; Z68.35 Obesity type: due to excess calories Obesity classification: adult class 2 (BMI 35 - 39.9) Serious obesity comorbidity presence: with serious comorbidity Body mass index: BMI 35.0-35.9 Assessment & Plan Assessment & Plan (1) Hypertension, essential: Code(s): I10 - Essential (primary) hypertension Category: Medical (2) Lipid disorder: Code(s): E78.9 - Disorder of lipoprotein metabolism, unspecified Category: Medical (3) Anxiety, generalized: Code(s): F41.1 - Generalized anxiety disorder Category: Medical (4) Insomnia: Code(s): G47.00 - Insomnia, unspecified Category: Medical Qualifiers: Insomnia type: unspecified Qualified Code(s): G47.00 - Insomnia, unspecified (5) Pre-diabetes: Code(s): R73.03 - Prediabetes Category: Medical (6) Depression, major, recurrent: Code(s): F33.9 - Major depressive disorder, recurrent, unspecified Category: Medical Qualifiers: Active/Remission status: in partial remission Qualified Code(s): F33.41 - Major depressive disorder, recurrent, in partial remission (7) Obesity: Code(s): E66.9 - Obesity, unspecified Category: Medical Qualifiers: Obesity type: due to excess calories Obesity classification: adult class 2 (BMI 35 - 39.9) Serious obesity comorbidity presence: with serious comorbidity Body mass index: BMI 35.0-35.9 Qualified Code(s): E66.01 - Morbid (severe) obesity due to excess calories; Z68.35 - Body mass index [BMI] 35.0-35.9, adult Plan History - The patient is a 64-year-old female presenting with concerns regarding insurance coverage for semaglutide for weight loss management. - She has experienced denial from her insurance provider for semaglutide, prescribed for weight loss, despite its availability for diabetes management. - Previous lab results indicated fluctuating kidney function with a glomerular filtration rate varying from the 50s to 60s. Last labs done in December showed GFR of 54 - Hyperlipidemia is noted, with LDL cholesterol level at 131, a deterioration from prior assessments. - The patient reports no significant depressive symptoms with ongoing management. - blood pressure is 110/78, continue lisinopril - lipid disorder continue pravastatin 80 mg patient is tolerating medication - psychiatric illness med inch by Psychiatry - patient is also established with pain management for chronic pain and is on morphine 60 mg b.i.d. Problem List - Difficulty obtaining insurance coverage for semaglutide (Wegovy/Ozempic) - Pre-diabetes - Hyperlipidemia - Fluctuating kidney function - lipid disorder - hypertension - psychiatric illness - chronic pain syndrome - obesity Patient Instructions - Explore options for obtaining semaglutide and check with different pharmacies regarding drug coverage. - Consider participation in a weight loss program if medication coverage remains an issue. - Monitor dietary habits to manage cholesterol levels. - Complete lab work today for current evaluation of kidney and liver function. - Attend the scheduled follow-up appointment in October for a physical exam and further discussion of medication management. - continue all medication as prescribed Orders: Orders Comprehensive [place]. Panel Fast Today E66.01 - Morbid (severe) obesity due to excess calories, E78.9 - Disorder of lipoprotein metabolism, unspecified, F33.41 - Major depressive disorder, recurrent, in partial remission, F41.1 - Generalized anxiety disorder, G47.00 - Insomnia, unspecified, I10 - Essential (primary) hypertension, R73.03 - Prediabetes, Z68.35 - Body mass index [BMI] 35.0-35.9, adult Complete Blood Count Auto Diff Today E66.01 - Morbid (severe) obesity due to excess calories, E78.9 - Disorder of lipoprotein metabolism, unspecified, F33.41 - Major depressive disorder, recurrent, in partial remission, F41.1 - Generalized anxiety disorder, G47.00 - Insomnia, unspecified, I10 - Essential (primary) hypertension, R73.03 - Prediabetes, Z68.35 - Body mass index [BMI] 35.0-35.9, adult Medications: New semaglutide (weight loss) (Wegovy) administer weeks 1 through 4 of therapy 0.25 mg (0.5 mL) subcut QWEEK 2 mL 0RF Refilled semaglutide for 4 weeks 0.25 mg (0.368 mL) subcut QWEEK 30 days 2 mL 0RF E66.01 - Morbid (severe) obesity due to excess calories, E78.9 - Disorder of lipoprotein metabolism, unspecified, I10 - Essential (primary) hypertension, R73.03 - Prediabetes, Z68.35 - Body mass index [BMI] 35.0-35.9, adult
[2024-06-11 11:18] VITALS: BP 110/78; PULSE 78; RESP 17; TEMP 37.1; O2SAT 98; BMI 35.7
--- OUTSIDE RECORDS SUMMARY | 2024-06-11 13:28 | XMS_ITS | Clinical Summary ---
Author Organization [facility] it Address [address] [place] [address] Care Team Providers Care Electric Mule Operator Name Role Phone Codey Romero MD Primary Care Provider Unavaila ble Medical History Medical History Date Comments Morbid obesity (CMS/HCC) 07/28/2005 DX:Morb id obesity (HCC) Leiomyoma of uterus, unspecified 07/28/2005 DX:Leiomyoma of uterus, unspecified Iron deficiency anemia secon elizabeth to blood loss (chronic) 07/28/2005 DX:Iron deficiency anemia se condary to blood loss (chronic) Anxiety state, unspecified 07/28/2005 DX:An xiety state, unspecified Other and unspecified hyperlipidemia 07/28/2005 DX:Other and unspecified hyperlipidemia Insomnia, unspecified 07/28/2005 DX:Insomni a, unspecified Family History Medical History Relation Name Comments Breast cancer Other 1 [place] Relation Name Status Comments Brother Alive Father Alive cabg Mother Alive Other 1 Other 2 Sister Alive Social History Tobacco Use Types Packs/Day Years Used Date Smoking Tobacco: Former Alcohol Use Standard Drinks/Week Comments Not Asked 0 (1 standard drink = 0.6 oz pur e alcohol) Comments Unknown Sex and Gender Information Value Date Recorded Sex Assigned at Not on file Legal Sex Female 10:04 AM EST Gender Identity Not on file Sexual Orientation Not on file Obstetrics History Plan of Treatment Health Maintenance Due Date Last Done Comments Breast Cancer Screening 1959 DTaP,Tdap,and Td Vaccines (1 - Tdap) 1978 Cervical Cancer Screening: P ap Smear 1980 Pneumococcal Vaccine: 50+ Ye ars (2 of 2 - PCV) 2009 10/03/2004 Zoster Vaccines (1 of 2) 2009 Cholesterol Screening (Lipid Panel) 12/03/2023 Colorectal Cancer Screening: Colonoscopy 12/03/2023 Depression Screening 12/03/2023 Hepatitis C Screening 12/03/2023 Hypertension/CHF/CAD Annual BMP Blood Test 12/03/2023 Osteoporosis Screening (Bone Density Screening) 12/03/2023 Social Influencers of Health Screening 12/03/2023 COVID-19 Vaccine ( - 2023-2 5 season) 2023 Influenza Vaccine (#1) 2023 Falls Risk Assessment 2024 RSV Immunization Patients 60 + Years Old (1 - 1-dose 75+ series) 2034 Pneumococcal Vaccine: Pediat rics (0 to 5 Years) and At-Risk Patients (6 to 64 Years) Aged Out 10/03/2004 No longer eligi ble based on patient's age to complete this topic HIB Vaccines Aged Out No longer eligi ble based on patient's age to complete this topic HPV Vaccines Aged Out No longer eligi ble based on patient's age to complete this topic Hepatitis A Vaccines Aged Out No long er eligible based on patient's age to complete this topic Hepatitis B Vaccines Aged Out No long er eligible based on patient's age to complete this topic IPV Vaccines Aged Out No longer eligi ble based on patient's age to complete this topic MMR Vaccines Aged Out No longer eligi ble based on patient's age to complete this topic Meningococcal ACWY Vaccine Aged Out N o longer eligible based on patient's age to complete this topic Meningococcal B Vacine Aged Out No lo nger eligible based on patient's age to complete this topic RSV Immunization Patients Un genna 20 months Aged Out No longer eligible b ased on patient's age to complete this topic Varicella Vaccines Aged Out No longer eligible based on patient's age to complete this topic Care Teams Electric Mule Operator Relationship Specialty Start Date End Date Codey Romero MD PCP - General 05/20/04
--- OUTSIDE RECORDS SUMMARY | 2024-06-11 13:28 | XMS_ITS ---
Author Organization [facility] Address Unknown Problems Problem Status Start Date End Date OTHER FRACTURE OF RIGHT LOWE R LEG, SUBSEQUENT ENCOUNTER FOR CLOSED FRACTURE WITH ROUTINE HEALING (Primary) (S82.891D - ICD-10-CM) ACTIVE 03/29/2023 ACUTE KIDNEY FAILURE, UNSPECIFIED (N17.9 - ICD-10-CM) ACTIVE 03/29/2023 GENERALIZED ANXIETY DISORDER (F41.1 - ICD-10-CM) ACTIV E 03/29/2023 PAIN IN RIGHT ANKLE AND JOIN TS OF RIGHT FOOT (M25.571 - ICD-10-CM) ACTIVE 03/29/2023 UNSPECIFIED FALL, SUBSEQUENT ENCOUNTER (W19.XXXD - ICD-10-CM) ACTIVE 03/29/2023 DISPLACED PILON FRACTURE OF RIGHT TIBIA, SUBSEQUENT ENCOUNTER FOR CLOSED FRACTURE WITH ROUTINE HEALING (S82.871D - ICD-10-CM) ACTIVE 03/29/2023 DIFFICULTY IN WALKING, NOT E LSEWHERE CLASSIFIED (R26.2 - ICD-10-CM) ACTIVE 03/29/2023 MUSCLE WEAKNESS (GENERALIZED) (M62.81 - ICD-10-CM) ACT DEJON 03/29/2023 REPEATED FALLS (R29.6 - ICD-10-CM) ACTIVE 2022 NEED FOR ASSISTANCE WITH PERSONAL CARE (Z74.1 - ICD-10 -CM) ACTIVE 03/29/2023 OPIOID DEPENDENCE, UNCOMPLICATED (F11.20 - ICD-10-CM) ACTIVE 03/29/2023 ESSENTIAL (PRIMARY) HYPERTENSION (I10 - ICD-10-CM) ACT DEJON 03/29/2023 HYPERLIPIDEMIA, UNSPECIFIED (E78.5 - ICD-10-CM) ACTIVE 03/29/2023 OTHER SPECIFIED HEALTH STATUS (Z78.9 - ICD-10-CM) ACTI VE 03/29/2023 OTHER CHRONIC PAIN (G89.29 - ICD-10-CM) ACTIVE 1 05/30/2022 OTHER SNF (CURRENT) DR [facility]Y THERAPY (Z79.899 - ICD-10-CM) ACTIVE 03/29/2023 Encounters Encounter Performer Performer Role Encounter Diagnoses Location Date Discharge - Discharged to home or self care - [facility] - Private home/apt. with home health services [facility] 03/29/2023 02:46 pm EST - 04/12/2023 10:00 am EST Social History
== END 2024-06-11 11:39 | disposition home or self-care (01) ==
PROVIDERS: PCP Internal Medicine; Visit Provider Internal Medicine
DX: I10 Essential (primary) hypertension (principal); F33.41 Major depressive disorder, recurrent, in partial remission; E66.01 Morbid (severe) obesity due to excess calories; Z68.35 Body mass index [BMI] 35.0-35.9, adult; E78.9 Disorder of lipoprotein metabolism, unspecified; F41.1 Generalized anxiety disorder; G47.00 Insomnia, unspecified; R73.03 Prediabetes

== ENCOUNTER 2025-01-16 10:41 | Outpatient (AMB) | payer MEDICARE, SELFPAY ==
[2025-01-16 10:43] VITALS: BP 118/76; PULSE 80; O2SAT 97; BMI 35.0
--- NOTE | 2025-01-16 10:43 | MHC.PC.OV ---
Vital Signs 01/16/25 10:43 Height 5 ft 6 in Weight 217 lb BMI 35.0 BP 118/76 Blood Pressure Location Lt brachial Position Sitting Pulse 80 Pulse Source Pulse Oximeter Pulse Oximetry (%) 97 Intake Visit Reasons: Back pain Allergies No Known Allergies (No Known Allergies*) Allergy (Verified 01/16/25 10:43) Medication List - Last Reconciled 01/16/25 by Odin Marie MD atenolol 25 mg PO DAILY 90 days buspirone 10 mg PO TID PRN 7 days lisinopril 10 mg PO DAILY 90 days lorazepam 1 mg PO BID 30 days morphine ER 30 mg PO BID nystatin 1 appl topical DAILY 30 days oxycodone 10 mg PO Q8H PRN pravastatin 80 mg PO DAILY 90 days quetiapine 200 mg PO TID Tobacco use date assessed: 06/11/24 Fall risk assessment: No Falls in past year Last assessed Fall Risk: 01/16/25 Dental Screening Dental Screen Date: 06/11/24 HPI Back pain HPI Details History The patient is a 64-year-old female presenting with regular f/u apt. Hand swelling and redness: - The patient reports chronic swelling and redness of the right hand, ongoing for several years. - There is no associated pain or loss of function, though the hand has a swollen and red appearance. - She has been evaluated by an orthopedic and hand specialist previously, who found no structural issues such as bone fractures. 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 - An ultrasound of the arm has been Ordered today to assess potential vascular issues; scheduling for this test is forthcoming. Chronic back pain: - The patient experiences severe back pain intermittently. - an ultrasound renal revealed no stones. - The pain episodes resolved spontaneously without intervention. - Managed through pain management with morphine ER 30 mg BID. Hypertension: - Diagnosed with hypertension, currently managed with Atenolol 25 mg and Lisinopril 10 mg. - Last laboratory work-up was completed in June; a new set of labs is being conducted today. Depression and anxiety: - Patient under psychiatric care with medications including Quetiapine 200 mg, Buspirone 10 mg, and Lorazepam 1 mg BID. - Previously diagnosed with severe depression and anxiety, which are chronically managed with psychiatric oversight. Medications: - Atenolol 25 mg for hypertension - Lisinopril 10 mg for hypertension - Buspirone 10 mg for anxiety - Lorazepam 1 mg BID for anxiety - Quetiapine 200 mg for depression - Morphine ER 30 mg BID for chronic back pain Problem List - Chronic hand swelling and redness right side only , patient is right handed and has full function of hand , no pain - Hypertension - Severe depression - Anxiety disorder - Bipolar disorder - Chronic back pain - Prediabetes - Obesity [place] of Care - Currently under the care of a psychiatry specialist for depression and anxiety. - Participating in pain management for chronic back pain. Plan - An ultrasound of the arm has been arranged to assess potential vascular causes for the patient's hand swelling; scheduling to be confirmed. - A new set of laboratory tests will be conducted today to monitor chronic conditions including hypertension, prediabetes, and obesity, with results to be reviewed and discussed if needed other joyce at next visit - Continued management of hypertension with Atenolol and Lisinopril, ensuring medication adherence. - Ongoing psychiatric care for mental health conditions with current medication regimen, monitoring effectiveness and adjusting as necessary. - Continue pain management strategies for chronic back pain using Morphine ER 30 mg BID. - Evaluate and monitor vaccination status; confirmed recent vaccinations against influenza, pneumonia, shingles, and COVID-19. f/u 4 M Review of Systems General: No fever no chills neurological: No headaches no dizziness ear nose throat: No sore throat no hearing difficulty no ear pain cardiovascular: No syncope, no chest pain, no palpitations gastrointestinal: No nausea vomiting or diarrhea endocrine: No polyuria polydipsia no heat intolerance genitourinary: No dysuria skin: No new complaints Physical Exam general: No acute distress HEENT: No acute findings neck: Supple respiratory system: Able to talk in full sentences, no audible wheeze no stridor cardiovascular: S1-S2 RRR gastrointestinal: No pain extremities: Right hand swollen and red, full range of motion, no pain, no tingling or numbness 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 Brother No problems noted. Sister No problems noted. Maternal Grandfather No problems noted. Maternal Grandmother No problems noted. Paternal Grandfather No problems noted. Paternal Grandmother No problems noted. Social History Housing: Condominium Alcohol intake: never Patient Tobacco Use Status: Never used Tobacco e-Cigarette/Vaping Use: Never Used Second Hand Smoke Exposure: No service: No Current occupational status: retired Cognitive needs: No Hearing needs: No Vision needs: No Questionnaire Thrive Questionnaire Date Thrive assessed: 01/16/25 I am a: Patient What is your living situation today?: I have a steady place to live Within the past 12 months, did the food you bought not last and you didn't have the money to get more?: Never true Within the past 12 months, did you worry whether your food would run out before you got money to buy more?: Never true Do you have trouble paying for medicines?: No Do you have trouble getting transportation to medical appointments?: No Do you have trouble paying your heating and electricity bill?: No Do you have trouble taking care of your child, family member or friend?: No Do you have trouble with day-to-day activities such as bathing, preparing meals, shopping, managing finances, etc.?: No Are you currently unemployed and looking for a job?: No Are you interested in more education?: No Please select the resources that you would like help with: None Currently or been in a relationship where the following occur: No concerns reported THRIVE Score: 0 AUDIT C Alcohol Use Questionnaire (AUDIT-C) 1. How often do you have a drink containing alcohol?: Never 3. How often do you have six or more drinks on one occasion?: Never Total Score: 0 Score Reviewed/Action Taken: Yes HUSEYIN-7 AMB Questionnaire HUSEYIN-7 Date HUSEYIN - 7 assessed: 01/16/25 Source: Developed by Drs. Tani Haq, Nayely Mccoy, Frantz Mauro and colleagues, with an educational adam from [employer]. Physical exam (Primary Care) Vital Signs: Last Vital Signs Pulse 80 01/16/25 10:43 BP 118/76 01/16/25 10:43 Pulse Ox 97 01/16/25 10:43 BMI result Body Mass Index 35.0 Tobacco/Smoking Status: Tobacco use Status Tobacco use date assessed 06/11/24 01/16/25 10:44 Patient Tobacco Use Status Never used Tobacco 01/16/25 10:44 e-Cigarette/Vaping Use Never Used 01/16/25 10:44 Thrive Assessment: Date of Thrive Assessment Date Thrive assessed 01/16/25 01/16/25 10:44 Currently or been in a relationship where the following occur: No concerns reported Coding Level of Care Code Est Pt Level 4 (63217) Complex EM visit Add On G2211 Diagnoses Swelling of right hand M79.89 Hypertension, essential I10 Lipid disorder E78.9 Pre-diabetes R73.03 Bipolar 1 disorder F31.9 Class 2 severe obesity due to excess calories with serious comorbidity and body mass index (BMI) of 35.0 to 35.9 in adult E66.01; Z68.35 Body mass index: BMI 35.0-35.9 Obesity classification: adult class 2 (BMI 35 - 39.9) Obesity type: due to excess calories Serious obesity comorbidity presence: with serious comorbidity Assessment & Plan Assessment & Plan (1) Swelling of right hand: Code(s): M79.89 - Other specified soft tissue disorders Category: Medical (2) Hypertension, essential: Code(s): I10 - Essential (primary) hypertension Category: Medical (3) Lipid disorder: Code(s): E78.9 - Disorder of lipoprotein metabolism, unspecified Category: Medical (4) Pre-diabetes: Code(s): R73.03 - Prediabetes Category: Medical (5) Bipolar 1 disorder: Code(s): F31.9 - Bipolar disorder, unspecified Category: Medical (6) Obesity: Code(s): E66.9 - Obesity, unspecified Category: Medical Qualifiers: Body mass index: BMI 35.0-35.9 Obesity classification: adult class 2 (BMI 35 - 39.9) Obesity type: due to excess calories Serious obesity comorbidity presence: with serious comorbidity Qualified Code(s): E66.01 - Morbid (severe) obesity due to excess calories; Z68.35 - Body mass index [BMI] 35.0-35.9, adult Plan History The patient is a 64-year-old female presenting with regular f/u apt. Hand swelling and redness: - The patient reports chronic swelling and redness of the right hand, ongoing for several years. - There is no associated pain or loss of function, though the hand has a swollen and red appearance. - She has been evaluated by an orthopedic and hand specialist previously, who found no structural issues such as bone fractures. 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 - An ultrasound of the arm has been Ordered today to assess potential vascular issues; scheduling for this test is forthcoming. Chronic back pain: - The patient experiences severe back pain intermittently. - an ultrasound renal revealed no stones. - The pain episodes resolved spontaneously without intervention. - Managed through pain management with morphine ER 30 mg BID. Hypertension: - Diagnosed with hypertension, currently managed with Atenolol 25 mg and Lisinopril 10 mg. - Last laboratory work-up was completed in June; a new set of labs is being conducted today. Depression and anxiety: - Patient under psychiatric care with medications including Quetiapine 200 mg, Buspirone 10 mg, and Lorazepam 1 mg BID. - Previously diagnosed with severe depression and anxiety, which are chronically managed with psychiatric oversight. Medications: - Atenolol 25 mg for hypertension - Lisinopril 10 mg for hypertension - Buspirone 10 mg for anxiety - Lorazepam 1 mg BID for anxiety - Quetiapine 200 mg for depression - Morphine ER 30 mg BID for chronic back pain Problem List - Chronic hand swelling and redness right side only , patient is right handed and has full function of hand , no pain - Hypertension - Severe depression - Anxiety disorder - Bipolar disorder - Chronic back pain - Prediabetes - Obesity [place] of Care - Currently under the care of a psychiatry specialist for depression and anxiety. - Participating in pain management for chronic back pain. Plan - An ultrasound of the arm has been arranged to assess potential vascular causes for the patient's hand swelling; scheduling to be confirmed. - A new set of laboratory tests will be conducted today to monitor chronic conditions including hypertension, prediabetes, and obesity, with results to be reviewed and discussed if needed other joyce at next visit - Continued management of hypertension with Atenolol and Lisinopril, ensuring medication adherence. - Ongoing psychiatric care for mental health conditions with current medication regimen, monitoring effectiveness and adjusting as necessary. - Continue pain management strategies for chronic back pain using Morphine ER 30 mg BID. - Evaluate and monitor vaccination status; confirmed recent vaccinations against influenza, pneumonia, shingles, and COVID-19. f/u 4 M Orders: Orders LDL Cholesterol Direct 01/16/25 E78.9 - Disorder of lipoprotein metabolism, unspecified, F31.9 - Bipolar disorder, unspecified, I10 - Essential (primary) hypertension, R73.03 - Prediabetes Hemoglobin A1c 01/16/25 E66.01 - Morbid (severe) obesity due to excess calories, R73.03 - Prediabetes, Z68.35 - Body mass index [BMI] 35.0-35.9, adult Complete Blood Count Auto Diff 01/16/25 E78.9 - Disorder of lipoprotein metabolism, unspecified, F31.9 - Bipolar disorder, unspecified, I10 - Essential (primary) hypertension, R73.03 - Prediabetes Comprehensive Met. Panel 01/16/25 E78.9 - Disorder of lipoprotein metabolism, unspecified, F31.9 - Bipolar disorder, unspecified, I10 - Essential (primary) hypertension, R73.03 - Prediabetes US venous duplex UE RT 01/16/25 M79.89 - Other specified soft tissue disorders
== END 2025-01-16 11:02 | disposition home or self-care (01) ==
LOC: HO.HMCC 10:41
PROVIDERS: PCP Internal Medicine; Visit Provider Internal Medicine
DX: M79.89 Other specified soft tissue disorders (principal); I10 Essential (primary) hypertension; E78.9 Disorder of lipoprotein metabolism, unspecified; R73.03 Prediabetes; F31.9 Bipolar disorder, unspecified; E66.01 Morbid (severe) obesity due to excess calories; Z68.35 Body mass index [BMI] 35.0-35.9, adult

== ENCOUNTER 2025-01-16 10:41 | Outpatient (REF) | payer MEDICARE, SELFPAY ==
[2025-01-16 13:03] LABS: MANUAL DIFF FLAG NO
[2025-01-16 13:07] LABS: Hematocrit 38.6 % (37.0-47.0); Hemoglobin 12.5 g/dl (12.0-16.0); Imm Gran Abs Auto 0.01 X10*3/uL (0.00-0.03); Imm Gran Pct Auto 0.3 % (0.0-0.4); Lymphocytes Absolute Auto 1.0 X10*3/uL (1.2-4.9); Mean Corpuscular HGB Conc 32.4 g/dl (31.0-35.0); Mean Corpuscular Hemoglobin 30.3 pg (27.0-33.0); Mean Corpuscular Volume 93.5 fL (80.0-98.0); NRBC Abs Auto 0.000 X10*3/uL (0.0-0.012); NRBC Pct Auto 0.0 /100WBC (0.0-0.2); Platelet Count 203 X10*3/uL (160-400); Red Blood Count 4.13 X10*6/uL (4.20-5.50); White Blood Count 3.7 X10*3/uL (4.8-10.8)
[2025-01-16 13:25] LABS: Alanine Aminotransferase 16 U/L (0-31); Albumin Level 4.3 g/dL (3.5-5.0); Alkaline Phosphatase 54 U/L (39-117); Anion Gap 9 (12-20); Aspartate Amino Transferase 22 U/L (5-31); Blood Urea Nitrogen 14 mg/dL (9-16); Calcium 9.5 mg/dL (8.4-10.2); Carbon Dioxide 34 mmol/L (22-29); Chloride 103 mmol/L (96-108); Estimated Glomerular Filt Rate > 60; Potassium 3.6 mmol/L (3.3-5.1); Sodium 142 mmol/L (135-145); Total Protein 6.8 g/dL (6.5-8.0)
== END 2025-01-16 10:42 | disposition home or self-care (01) ==
LOC: HO.HMGCLDS 10:41
PROVIDERS: PCP Internal Medicine; Visit Provider Internal Medicine
DX: I10 Essential (primary) hypertension (principal); E78.9 Disorder of lipoprotein metabolism, unspecified; F31.9 Bipolar disorder, unspecified; R73.03 Prediabetes; M25.441 Effusion, right hand; M54.50 Low back pain, unspecified; G89.29 Other chronic pain; F41.9 Anxiety disorder, unspecified; M79.89 Other specified soft tissue disorders; E66.01 Morbid (severe) obesity due to excess calories; E66.812 Obesity, class 2; Z68.35 Body mass index [BMI] 35.0-35.9, adult
CPT/HCPCS: 36415; 80053; 83036; 83721; 85025; 96127; 99212

== ENCOUNTER 2025-02-16 13:33 | Outpatient (REF) | payer MEDICARE, SELFPAY ==
--- NOTE | ~2025-02-16 | US_ITS ---
EXAMINATION: US TRIPLEX UPPER EXTREMITY, RIGHT CLINICAL INFORMATION: Swelling COMPARISON: None available. TECHNIQUE: Color-flow triplex imaging with spectral analysis and compression Doppler was performed on the right upper extremity. FINDINGS: The right internal jugular, subclavian, and axillary veins are patent and free of thrombus. The imaged segment of the right brachiocephalic vein is patent. Spectral doppler waveforms are normal. The brachial, basilic, cephalic, radial, and ulnar veins are patent and compressible. US/US venous duplex UE RT IMPRESSION: No evidence of deep venous thrombosis involving the right upper extremity. Electronically signed by: Santiago Jaimes MD 02/16/2025 02:14 PM EST
--- OUTSIDE RECORDS SUMMARY | 2025-02-16 15:41 | XMS_ITS ---
Author Organization [facility] Care Team Providers Care Airplane Mechanic Name Role Phone Suzanna Osman Unavailable Unavailable Abby Pradhan Unavailable Unavailable Elham Braga Unavailable Unavailable Dulce Blackwood Unavailable Unavailable Allergies and adverse reactions No Known Allergies Care Team Name Role Address Phone Organization Dates Abby Pradhan PCP [address], [place], [address], [facility] (Office): [facility] 03/29/2023 - 04/12/2023 Suzanna Osman [address] [facility] [address] [place] [address], [id number], [facility] (Office): [facility] 03/29/2023 - 04/12/2023 Elham Braga [address] [facility] [address] [place] [address], [id number], [facility] (Office): [facility] 03/29/2023 - 04/12/2023 Dulce Blackwood [address] [place] [address], [id number], [facility] (Office): [facility] 03/29/2023 - 04/12/2023 Mental Status Section Date Assessment Total Score Description 04/12/2023 BIMS 15 cognitively int act CAM 0 No delirium ind icated PHQ-9 00 04/04/2023 BIMS 15 cognitively int act CAM 0 No delirium ind icated PHQ-9 00 Insurance Providers Problems Problem # Description Date of onset Resolved Date Code CodeSystem Concern Status 1 ACUTE KIDNEY FAILURE, UNSPECIFIED 03/29/[address] active 2 DIFFICULTY IN WALKING, NOT ELSEWHERE CLASSIFIED 03/29/[address] active 3 DISPLACED PILON FRACTURE OF RIGHT TIBIA, SUBSEQUENT ENCOUNTER FOR CLOSED FRACTURE WITH ROUTINE HEALING 03/29/[address] active 4 ESSENTIAL (PRIMARY) HYPERTENSION 03/29/[address] active 5 GENERALIZED ANXIETY DISORDER 03/29/[address] active 6 HYPERLIPIDEMIA, UNSPECIFIED 03/29/[address] active 7 MUSCLE WEAKNESS (GENERALIZED) 03/29/[address] active 8 NEED FOR ASSISTANCE WITH PERSONAL CARE 03/29/[id number] active 9 OPIOID DEPENDENCE, UNCOMPLICATED 03/29/[address] active 10 OTHER CHRONIC PAIN 03/29/[address] active 11 OTHER FRACTURE OF RIGHT LOWER LEG, SUBSEQUENT ENCOUNTER FOR CLOSED FRACTURE WITH ROUTINE HEALING 03/29/[address] active 12 OTHER DETENTION (CURRENT) DRUG THERAPY 03/29/[address] active 13 OTHER SPECIFIED HEALTH STATUS 03/29/[address] active 14 PAIN IN RIGHT ANKLE AND JOINTS OF RIGHT FOOT 03/29/[address] active 15 REPEATED FALLS 03/29/[address] active 16 UNSPECIFIED FALL, SUBSEQUENT ENCOUNTER 03/29/[address] active Reason for Referral No Reasons for Referral Entered Social History Social History Observation Description Start Date End Date Code Code System Current Smoking Status Tobacco smoking consumption unknown 548265103 SNOMED CT Sex Assigned At Female 1960 43392-0 [facility] Gender Identity Sexual Orientation Vital Signs Code Code System Vitals Name Values and Units Timing Information 43960-7 LOINC Pain Level Value=6.0 04/12/2023 9279-1 LOINC Respiratory Rate Value=18.0 Units=/m in 04/12/2023 8462-4 LOINC Blood Pressure-Diastolic Value=69 Un its=mmHg 04/12/2023 8480-6 [facility] Blood Pressure-Systolic Xbqcf=352 Un its=mmHg 04/12/2023 8310-5 [facility] Body Temperature Value=97.5 Units= F 04/12/2023 8867-4 [facility] Heart rate Value=72.0 Units=/min 07/2023 49710-8 [facility] O2 % BldC Oximetry Value=98.0 Units= % 04/11/2023 75390-6 [facility] Weight Ixpsr=922.2 Units=Lbs 8302-2 [facility] Height Value=66.0 Units=Inches 03/30/2023
--- OUTSIDE RECORDS SUMMARY | 2025-02-16 15:41 | XMS_ITS | Clinical Summary ---
Author Organization [facility] Address [address] [place] [address] Phone Care Team Providers Care Foundry Helper Name Role Phone Odin Marie MD Primary Care Provider [phone] Allergies No known active allergies Medications atenoloL (TENORMIN) 25 mg tablet Take 1 tablet (25 mg total) by mouth 1 (one) time each day. Active lisinopriL (PRINIVIL,ZESTRI L) 10 mg tablet Take 1 tablet (10 mg total) by mouth 1 (one) time each day. Active pravastatin (PRAVACHOL) 80 mg tablet Take 1 tablet (80 mg total) by mouth at bedtime. Active naloxone (NARCAN) 4 mg/0.1 mL nasal sprayIndications :opioid overdose,opioid- induced respiratory depression Administer 1 each (4 mg total) into affected nostril(s) if needed for opioid reversal or respiratory depression. Give 4 mg (1 spray) into one nostril. May repeat every 2-3 minutes if needed, alternating nostrils, until medical assistance becomes available. 2 each 5 Active LORazepam (ATIVAN) 1 mg tablet Take 0.5 tablets (0.5 mg total) by mouth every 8 (eight) hours if needed for anxiety. Max Daily Amount: 1.5 mg 5 Active QUEtiapine XR (SEROquel XR) 200 mg 24 hr tablet Take 1 tablet (200 mg total) by mouth at bedtime. Do not crush, chew, or split. 5 Active Active Problems Problem Noted Date Diagnosed Date Overdose 11/23/2024 Encounters Date Type Department Care Team Description 11/22/2024 5:26 PM EDT - 11/24/2024 3:55 PM EDT Hospital Encounter [facility] [address] [place] [address] Gail Koroma MD Sondhi, Vikram, MD Nasser, Nada S, MD Kela, Brice Bateman MD Opiate overdose, undetermined intent, initial encounter ([facility] [place], [facility] [place]28) (Primary Dx); Benzodiazepine overdose of undetermined intent, initial encounter; Stupor Discharge Disposition: Home or Self Care from Last 3 Months Medical History Medical History Date Comments Morbid obesity ([facility] [place], [facility] V28) 07/28/2005 DX:Morbid obesity ([facility]) Leiomyoma of uterus, unspecified 07/28/2005 DX:Leiomyoma of [...] drink = 0.6 oz pur e alcohol) Interpersonal Safety Answer Date Record ed Physical Abuse Unrecognized value 11/23/2024 Verbal Abuse Unrecognized value 11/23/2024 Comments Unknown Sex and Gender Information Value Date Recorded Sex Assigned at Not on file Legal Sex Female 10:04 AM EST Gender Identity Not on file Sexual Orientation Not on file Obstetrics History Last Filed Vital Signs Vital Sign Reading Time Taken Comments Blood Pressure 143/91 11/24/2024 7:31 AM EDT Pulse 91 11/24/2024 7:31 AM EDT Temperature 36.9 C (98.4 F) 11/24/2024 7:31 AM EDT Respiratory Rate 16 11/24/2024 7:31 AM EDT Oxygen Saturation 97% 11/24/2024 7:31 AM EDT Inhaled Oxygen Concentration - - Weight 68 kg (150 lb) 11/22/2024 10:45 PM EDT Height 167.6 cm (5' 6 ) 11/22/2024 10:45 PM EDT Body Mass Index 24.21 11/22/2024 10:45 PM EDT Plan of Treatment Health Maintenance Due Date Last Done Comments Breast Cancer Screening 1959 Colorectal Cancer Screening: Colonoscopy 1959 Hepatitis A Vaccines (1 of 2 - Risk 2-dose series) 1978 Cervical Cancer Screening: Pap Smear 1980 Pneumococcal Vaccine: 50+ Years (2 of 2 - PCV) 2009 10/03/2004 DTaP,Tdap,and Td Vaccines (3 - Td or Tdap) 10/11/2013 10/12/2003, 04/29/2002 Cholesterol Screening (Lipid Panel) 12/03/2023 Hepatitis C Screening 12/03/2023 Medicare Annual Wellness Visit 12/03/2023 Osteoporosis Screening (Bone Density Screening) 12/03/2023 Social Influencers of Health Screening 12/03/2023 Depression Screening 04/09/2024 COVID-19 Vaccine ( season) 2024 01/09/2024, 01/05/2023, 03/28/2022, Additional history exists Influenza Vaccine (#1) 2024 , 01/05/2023, 12/20/2021, Additional history exists Falls Risk Assessment 11/24/2025 11/24/2024 Hypertension/CHF/CAD Annual BMP Blood Test 11/24/2025 11/24/2024, 11/23/2024, 11/22/2024 RSV Immunization Adult Patients (1 - 1-dose 75+ series) 2034 MMR Vaccines Aged Out 10/23/2018 No longer eligi ble based on patient's age to complete this topic Zoster Vaccines Completed 09/29/2023, 01/05/2023 HIB Vaccines Aged Out No longer eligi [...] age to complete this topic Meningococcal B Vaccine Aged Out No l onger eligible based on patient's age to complete this topic RSV Immunization Patients Under 20 months Aged Out No longer eligible based on patient's age to complete this topic Varicella Vaccines Aged Out No longer eligible based on patient's age to complete this topic Procedures Procedure Name Priority Date/Time Associated Diagnosis Comments ECG ANNOTATED 11/25/2024 MAGNESIUM Routine 11/24/2024 6:59 AM EDT BASIC METABOLIC PANEL Routine 11/24/2024 6:59 AM EDT COMPLETE BLOOD COUNT Routine 11/24/2024 6:59 AM EDT PHOSPHORUS Routine 11/24/2024 6:59 AM EDT COMPLETE BLOOD COUNT Routine 11/23/2024 5:49 AM EDT BASIC METABOLIC PANEL Routine 11/23/2024 5:49 AM EDT BUPRENORPHINE SCREEN, URINE STAT Add-on 11/22/2024 8:54 PM EDT METHADONE SCREEN, URINE STAT Add-on 11/22/2024 8:54 PM EDT URINALYSIS WITH REFLEX MICROSCOPIC STAT 11/22/2024 8:54 PM EDT DRUG ABUSE SCREEN 8A PANEL, URINE STAT 11/22/2024 8:54 PM EDT URINALYSIS WITH REFLEX MICROSCOPIC STAT 11/22/2024 8:54 PM EDT ECG 12-LEAD STAT 11/22/2024 6:41 PM EDT VENOUS BLOOD GAS STAT 11/22/2024 6:35 PM EDT COMPLETE BLOOD COUNT STAT 11/22/2024 6:35 PM EDT ETHANOL STAT 11/22/2024 6:35 PM EDT BASIC METABOLIC PANEL STAT 11/22/2024 6:35 PM EDT [facility] CRITICAL CARE 30-74 MINUTES Routine 11/22/2024 5:22 PM EDT from Last 3 Months Results * ECG-Annotated (11/25/2024) us Provider Onbase MD ECG ORDERABLES Final Result * Complete blood count (11/24/2024 6:59 AM EDT) Only the most recent of3 resultswithin the time period is included. WBC 6.4 4.8 - 10.8 K/mcL LAB HEMETOLOGY METHOD 11/24/2024 7:57 AM EDT [facility] RBC 4.00 3.80 - 4.80 M/mcL LAB HEMETOLOGY METHOD 11/24/2024 7:57 AM EDT [facility] Hemoglobin 12.2 11.5 - 16.0 g/dL LAB HEMETOLOGY METHOD 11/24/2024 7:57 AM EDT [facility] Hematocrit 36.8 35.0 - 47.0 % LAB HEMETOLOGY METHOD 11/24/2024 7:57 AM EDT [facility] MCV 92.7 79.0 - 98.0 FL LAB HEMETOLOGY METHOD 11/24/2024 7:57 AM EDT [facility] MCH 30.7 27.0 - 32.0 pcg LAB HEMETOLOGY METHOD 11/24/2024 7:57 AM EDT [facility] MCHC 33.2 32.0 - 37.0 g/dL LAB [facility]ETOLOG[facility] 11[facility]24[facility]24 [facility] RDW 12.4 11.0 - 15.0 % LAB HEMETOLOGY METHOD 11/24/2024 7:57 AM EDT [facility] Platelets 201 130 - 400 K/mcL LAB HEMETOLOGY METHOD 11/24/2024 7:57 AM EDT [facility] MPV 9.6 7.0 - 11.0 FL LAB HEMETOLOGY METHOD 11/24/2024 7:57 AM EDT [facility] NRBC 0.0 <1.0 % LAB HEMETOLOGY METHOD 11/24/2024 7:57 AM EDT [facility] NRBC Absolute 0.00 <0.10 K/mcL LAB HEMETOLOGY METHOD 11/24/2024 7:57 AM EDT [facility] Blood Venous blood specimen / Unknown Venipuncture / Unknown 11/24/2024 6:59 AM EDT 11/24/2024 7:13 AM EDT us Brice Sherman MD LAB BLOOD ORDERABLE S Final Result [facility] [address] [place] [address], [place] [phone] * (ABNORMAL) Phosphorus (11/24/2024 6:59 AM EDT) Phosphorus 1.7(L) 2.5 - 4.5 mg/dL LAB CHEMISTRY METHOD 11/24/2024 7:56 AM EDT [facility] Blood Venous blood specimen / Unknown Venipuncture / Unknown 11/24/2024 6:59 AM EDT 11/24/2024 7:14 AM EDT us Brice Sherman MD LAB BLOOD ORDERABLE S Final Result [facility] [address] [place] [address], [place] [phone] * (ABNORMAL) Magnesium (11/24/2024 6:59 AM EDT) [facility] Magnesium 1.8(L) 1.9 - 2.6 mg/dL LAB CHEMISTRY METHOD 11/24/2024 7:56 AM T [facility] Blood Venous blood specimen / Unknown Venipuncture / Unknown 11/24/2024 6:59 AM EDT 11/24/2024 7:14 AM EDT Brice Sherman MD LAB BLOOD ORDERABLE S Final Result [facility] [address] [place] [address], * (ABNORMAL) Basic metabolic panel (11/24/2024 6:59 AM EDT) Only the most recent of3 resultswithin the time period is included. [facility] Sodium 139 133 - 145 mmol/L LAB CHEMISTRY METHOD 11/24/2024 8:13 AM [facility] Potassium 3.2(L) 3.5 - 5.5 mmol/L LAB CHEMISTRY METHOD 11/24/2024 8:13 AM [facility] Chloride 102 96 - 110 mmol/L LAB CHEMISTRY METHOD 11/24/2024 8:13 AM [facility] CO2 32 21 - 32 mmol/L LAB CHEMISTRY METHOD 11/24/2024 8:13 AM [facility] Anion Gap 5 3 - 11 LAB CHEMISTRY METHOD 11/24/2024 8:13 AM [facility] Glucose 112(H) 70 - 100 mg/dL LAB CHEMISTRY METHOD 11/24/2024 8:13 AM [facility] BUN 11 5 - 25 mg/dL LAB CHEMISTRY METHOD 11/24/2024 8:13 AM [facility] Comment:Results verified by repeat testing Creatinine 0.72 0.50 - 1.10 mg/dL LAB CHEMISTRY METHOD 11/24/2024 8:13 AM [facility] eGFR 93 >=60 mL/min/1. 73m2 LAB CHEMISTRY METHOD 11/24/2024 8:13 AM [facility] Comment:Calculation based on the Chronic Kidney Disease Epidemiology Collaboration (CKD-EPI) equation refit without adjustment for race. BUN/Creatinine Ratio 15.3 LAB CHEMISTRY METHOD 11/24/2024 8:13 AM [facility] Calcium 9.3 8.5 - 10.5 mg/dL LAB CHEMISTRY METHOD 11/24/2024 8:13 AM [facility] Blood Venous blood specimen / Unknown Venipuncture / Unknown 11/24/2024 6:59 AM EDT 11/24/2024 7:14 AM EDT [facility] Bhavana Sherman MD LAB BLOOD ORDERABLE S Final Result [facility] [address] [place] [address], * (ABNORMAL) Urinalysis with reflex microscopic (11/22/2024 8:54 PM EDT) Specific [place] Urine 1.019 1.003 - 1.030 LAB URINALYSIS - AUTOMATED METHOD 11/22/2024 10:31 PM [facility] pH, Urine 5.5 5.0 - 8.0 pH LAB URINALYSIS - AUTOMATED METHOD 11/22/2024 10:31 PM [facility] Leukocytes, Urine Trace(A) Negative LAB URINALYSIS - AUTOMATED METHOD 11/22/2024 10:31 PM [facility] Nitrite, Urine Negative Negative LAB URINALYSIS - AUTOMATED METHOD 11/22/2024 10:31 PM [facility] Protein, Urine 30(A) <=Trace mg/dL LAB URINALYSIS - AUTOMATED METHOD 11/22/2024 10:31 PM [facility] Glucose, Urine Negative Negative mg/dL LAB URINALYSIS - AUTOMATED METHOD 11/22/2024 10:31 PM [facility] Ketones, Urine 15(A) Negative mg/dL LAB URINALYSIS - AUTOMATED METHOD 11/22/2024 10:31 PM [facility] Urobilinogen , Urine 1.0 0.2 - 1.0 mg/dL LAB URINALYSIS - AUTOMATED METHOD 11/22/2024 10:31 PM [facility] Bilirubin, Urine Negative Negative LAB URINALYSIS - AUTOMATED METHOD 11/22/2024 10:31 PM [facility] Blood, Urine Large(A) Negative LAB URINALYSIS - AUTOMATED METHOD 11/22/2024 10:31 PM [facility] RBC, Urine 10(H) 0 - 4 /HPF 11/22/2024 10:31 PM [facility] WBC, Urine 4 0 - 4 /HPF 11/22/2024 10:31 PM [facility] Squamous Epithelial, Urine 10 0 - 60 /LPF 11/22/2024 10:31 PM [facility] Non-Squamous Epithelial, Urine Rare Transitional epithelial cells. /LPF 11/22/2024 10:31 PM [facility] Bacteria, Urine Few(A) Negative /HPF 11/22/2024 10:31 PM [facility] Hyaline Casts, Urine 25(H) 0 - 3 /LPF 11/22/2024 10:31 PM [facility] Other Casts, Urine Rare Fine Granular casts. Rare Coarse Granular casts. Rare RTE casts. /LPF 11/22/2024 10:31 PM [facility] Urine Urine specimen obtained by clean catch procedure / Unknown Non-blood Collection / Unknown 11/22/2024 8:54 PM EDT 11/22/2024 9:47 PM EDT Gail Koroma MD LAB URINE ORDERABLES Final Resul t [facility] [address] [place] [address], * (ABNORMAL) Drug abuse screen 8a panel, urine (11/22/2024 8:54 PM EDT) Amphetamine Screen, Ur Negative Negative LAB CHEMISTRY METHOD 5 10:16 PM EDT [facility] Comment:Certain OTC medicati ons containing ephedrine, phenylephrine, pseudoephedrine and phenylpropanolamine can cause false positive results. Barbiturate Screen, Ur Negative Negative LAB CHEMISTRY METHOD 5 10:16 PM [facility] Benzodiazepine Screen, Ur Positive(A ) Negative LAB CHEMISTRY METHOD 5 10:16 PM [facility] Cocaine Screen, Ur Negative Negative LAB CHEMISTRY METHOD 5 10:16 PM [facility] Opiate Screen, Ur Positive(A ) Negative LAB CHEMISTRY METHOD 5 10:16 PM [facility] Cannabinoid (THC) Screen, Ur Negative Negative LAB CHEMISTRY METHOD 5 10:16 PM T [facility] Comment:Specimens from patie nts taking pantoprazole sodium (Protonix) have been shown to produce false positive results. Oxycodone Screen, Ur Negative Negative LAB CHEMISTRY METHOD 5 10:16 PM T [facility] Fentanyl, Ur Negative Negative LAB CHEMISTRY METHOD 5 10:16 PM [facility] Urine Urine specimen obtained by clean catch procedure / Unknown Non-blood Collection / Unknown 11/22/2024 8:54 PM EDT 11/22/2024 9:48 PM EDT [facility] - 11/22/2024 10:16 PM EDT Assay cutoffs: Amphetamines 1000 ng/mL Barbiturates 200 ng/mL Benzodiazepines 200 ng/mL Cocaine 300 ng/mL Fentanyl 1 ng/mL Opiates 300 ng/mL Oxycodone 100 ng/mL THC 50 ng/mL Semi-quantitative assay for screening purposes only. Unconfirmed screening result should not be used for non-medical purposes. *ALTERNATE METHOD CONFIRMATION DONE UPON REQUEST ONLY* Gail Koroma MD LAB URINE ORDERABLES Final Resul t Performing Organization Address [facility]/ZIP Co de Phone Number [facility] [address] [place] [address], * Buprenorphine screen, urine (11/22/2024 8:54 PM EDT) Buprenorphine Screen Urine Negative Negative LAB CHEMISTRY METHOD 11/24/2024 9:24 AM EDT [facility] Urine Urine specimen obtained by clean catch procedure / Unknown Non-blood Collection / Unknown 11/22/2024 8:54 PM EDT 11/22/2024 9:48 PM EDT [facility] - 11/24/2024 9:24 AM EDT Assay cutoff 5 ng/mL Semi-quantitative assay for screening purposes only. Unconfirmed screening result should not be used for non-medical purposes. *ALTERNATE METHOD CONFIRMATION DONE UPON REQUEST ONLY* Darren LEI LAB URINE ORDERABLES Brigette l Result [facility] [address] [place] [address], * Methadone, urine (11/22/2024 8:54 PM EDT) Methadone Screen, Urine Negative Negative LAB CHEMISTRY METHOD 11/24/2024 9:24 AM EDT [facility] Comment: Assay cutoff 300 ng/mL Semi-quantitative assay for screening purposes only. Unconfirmed screening result should not be used for non-medical purposes. *ALTERNATE METHOD CONFIRMATION DONE UPON REQUEST ONLY* Urine Urine specimen obtained by clean catch procedure / Unknown Non-blood Collection / Unknown 11/22/2024 8:54 PM EDT 11/22/2024 9:48 PM EDT Darren LEI LAB URINE ORDERABLES Brigette l Result Performing Organization Address [facility]/ZIP Co de Phone Number [facility] [address] [place] [address], [place] [phone] * 12-Lead ECG (11/22/2024 6:41 PM EDT) Ventricular Rate ECG 100 BPM GEMUSE Atrial Rate 100 BPM GEMUSE P-R Interval 148 ms GEMUSE QRS Duration 90 ms GEMUSE Q-T Interval 362 ms GEMUSE QTc 466 ms GEMUSE P Wave [place] 28 degrees GEMUSE R [place] -30 degrees GEMUSE T [place] 17 degrees GEMUSE ECG Interpretation Normal sinus rhythm Left axis deviation Minimal voltage criteria for LVH, may be normal variant Cannot rule out Anterior infarct , age undetermined Abnormal ECG No previous ECGs available Confirmed by BOUBACAR URIARTE ([id number]) on 11/23/2024 9:29:04 AM GEMUSE 11/22/2024 6:41 PM EDT 11/23/2024 9:29 AM EDT Gail Koroma MD ECG ORDERABLES Final Result Performing Organization Address [facility]/ZIP Co de Phone Number GEMUSE * (ABNORMAL) Venous blood gas (11/22/2024 6:35 PM EDT) pH, Dario 7.33 7.32 - 7.42 pH 11/22/2024 6:50 PM EDT [facility] pCO2, Dario 58(H) 41 - 51 mmHg 11/22/2024 6:50 PM EDT [facility] pO2, Dario 53(H) 25 - 40 mmHg 11/22/2024 6:50 PM EDT [facility] HCO3, Venous 27.1(H) 22.0 - 26.0 mmol/L 11/22/2024 6:50 PM EDT [facility] O2 Sat, Dario 88.0 % 11/22/2024 6:50 PM EDT [facility] Base Excess, Dario 3.2(H) -2.0 - 2.0 mmol/L 11/22/2024 6:50 PM EDT [facility] Blood Venous blood specimen / Unknown Venipuncture / Unknown 11/22/2024 6:35 PM EDT 11/22/2024 6:46 PM EDT Gail Koroma MD LAB BLOOD ORDERABLES Final Resul t Performing Organization Address City/[facility]/ZIP Co de Phone Number [facility] [address] [place] [address], [place] [phone] * Ethanol (11/22/2024 6:35 PM EDT) Ethanol Level <3 0 - 10 mg/dL LAB CHEMISTRY METHOD 11/22/2024 7:13 PM EDT [facility] Blood Venous blood specimen / Unknown Venipuncture / Unknown 11/22/2024 6:35 PM EDT 11/22/2024 6:46 PM EDT Gail Koroma MD LAB BLOOD ORDERABLES Final Resul t Performing Organization Address City/[facility]/ZIP Co de Phone Number [facility] [address] [place] [address], [place] [phone] * [facility] CRITICAL CARE 30-74 MINUTES (11/22/2024 5:22 PM EDT) Narrative Gail Koroma MD - 11/22/2024 5:22 PM EDT Gail Koroma MD 11/23/2024 4:12 AM Critical Care Performed by: Gail Koroma MD Authorized by: Gail Koroma MD Critical care provider statement: Critical care time (minutes): 60 Total face to face critical care time (minutes): 30 Critical care time was exclusive of: Separately billable procedures and treating other patients Critical care was necessary to treat or prevent imminent or life-threatening deterioration of the following conditions: Toxidrome, respiratory failure and DELIVERY ROUTE DRIVER failure or compromise Critical care was time spent personally by me on the following activities: Development of treatment plan with patient or surrogate, evaluation of patient's response to treatment, examination of patient, interpretation of cardiac output measurements, obtaining history from patient or surrogate, ordering and performing treatments and interventions, ordering and review of laboratory studies, pulse oximetry, re-evaluation of patient's condition and review of old charts Face to face critical care was time spent personally by me on the following activities: Evaluation of patient's response to treatment, examination of patient, interpretation of cardiac output measurements, obtaining history from patient or surrogate, ordering and performing treatments and interventions, pulse oximetry and re-evaluation of patient's condition I assumed direction of critical care for this patient from another provider in my specialty: no Care discussed with: admitting provider Gail Koroma MD IN CLINIC/BEDSIDE ORDERABLES Fin al Result from Last [address] [place] [phone] [employer] Advance Directives * Full Code - Default (Latest Code Status on File) Date Activated Date Inactivated Comments 11/23/2024 12:06 AM 11/24/2024 5:55 PM This is ord er is used when code status has not been discussed with the patient, or code status is otherwise unknown/unconfirmed To update the patient's code status, place a code status order. Do not modify or discontinue any currently active code status orders. Care Teams Foundry Helper Relationship Specialty Start Date End Date Odin Marie MD [address] [place] [id number] PCP - General Internal Medicine 11/23/24
--- OUTSIDE RECORDS SUMMARY | 2025-02-16 15:41 | XMS_ITS | Clinical Summary ---
Author Organization [employer] Address [address] [place] [address] Care Team Providers Care Customer Acquisition Specialist Name Role Phone Unavailable Primary Care Provider Unavailabl e Allergies No known active allergies Medications buprenorphine-n aloxone (Suboxone) 4-1 MG per sublingual filmIndications :Uncomplicated opioid dependence (CMS/HCC) (HCC) Place 1 Film under the tongue Once per day for 16 days. 8 Film 1 11/28/2024 Active Buprenorphine HCl-Naloxone HCl (Suboxone) 8-2 MG SL filmIndications :Uncomplicated opioid dependence (CMS/HCC) (HCC) Place 1 Film under the tongue 3 times daily for 7 days. 21 Film 12/15/2024 Active buprenorphine ER (Sublocade) 300 mg/1.5mL injectionIndica tions:Uncomplic ated opioid dependence (CMS/HCC) (HCC) Inject 1.5 mL (1 each) under the skin every month to absorb continually . 1.5 mL 1 11/28/2024 Encounters Date Type Department Care Team Description 12/16/2024 Refill [facility] MEDICINE [address] [place] [address] Antoinette Salgado RN Uncomplicated opioid dependence (CMS/HCC) 12/15/2024 10:15 AM EDT Office Visit [facility] [address] [place] [phone] Jonathan Baeza MD Opioid type dependence, continuous (CMS/HCC) (Primary Dx); Uncomplicated opioid dependence (CMS/HCC) 12/15/2024 Travel 12/02/2024 Refill [facility] MEDICINE [address] [place] [address] Antoinette Salgado RN Uncomplicated opioid dependence (CMS/HCC) 12/01/2024 2:00 PM EDT Office Visit [facility] [address] [place] [address] Jonathan Baeza MD Uncomplicated opioid dependence (CMS/HCC) (Primary Dx) 12/01/2024 Travel 11/28/2024 11:15 AM EDT Office Visit [facility] MEDICINE [address] [place] [phone] Kodak Wilkinson MD Chronic prescription opiate use (Primary Dx) 11/28/2024 10:00 AM EDT Office Visit [facility] MEDICINE [address] [place] [phone] Trice De Santiago RN Uncomplicated opioid dependence (CMS/HCC) 11/28/2024 Refill [facility] MEDICINE [address] [place] [phone] Trice De Santiago RN Uncomplicated opioid dependence ([facility]/HCC) 11/28/2024 Refill [facility] MEDICINE [address] [place] [phone] Trice De Santiago RN Uncomplicated opioid dependence ([facility]/HCC) 11/28/2024 Refill [facility] MEDICINE [address] [place] [phone] Trice De Santiago RN 11/28/2024 Refill [facility] MED[facility]INE [address] [place] [phone] Trice De Santiago RN Uncomplicated opioid dependence ([facility]/HCC) 11/28/2024 Travel from Last 3 Months Social History Tobacco Use Types Packs/Day Years Used Date Smoking Tobacco: Never Smokeless Tobacco: Never Tobacco Cessation:Counseling Given: Not Answered Alcohol Use Standard Drinks/Week Comments Never 0 (1 standard drink = 0.6 oz pur e alcohol) Depression Answer Date Recorded Patient Health Questionnaire-9 Score 2 11/28/2024 Patient Health Questionnaire-9 Score 2 11/28/2024 Last PHQ-9: Questionnaire Data Not on file 0 11/28/2024 Housing Stability Answer Date Recorded What is your housing situation today? I have candy vazquez 11/28/[address] you li ve. Do you have problems with any of the following? None of the above 11/28/2024 Food Insecurity Answer Date Recorded Within the past 12 months, y ou worried that your food would run out before you got money to buy more: Never True 11/28/2024 Within the past 12 months,th e food you bought just didn't last and you didn't have enough money to get more: Never True Transportation Answer Date Recorded In the past 12 months, has l ack of transportation kept you from medical appts, meetings, work or from getting things needed for daily living? No 11/28/2024 Utilities Answer Date Recorded In the past 12 months, has t he electric, gas, oil or water company threatened to shut off services in your home? No 11/28/2024 Depression Answer Date Recorded Patient Health Questionnaire-2 Score 2 11/28/2024 Internet Access Answer Date Recorded Internet Access Q1 No 11/28/2024 Internet Access Q2 Not on file 11/28/2024 Comments Unknown Sex and Gender Information Value Date Recorded Sex Assigned at Female 11/28/2024 10:05 AM EDT Legal Sex Female 3:00 PM EDT Gender Identity Female 11/28/2024 10:05 AM EDT Sexual Orientation Straight 11/28/2024 10 :05 AM EDT Last Filed Vital Signs Vital Sign Reading Time Taken Comments Blood Pressure 126/75 11/28/2024 11:15 AM EDT Pulse 89 11/28/2024 11:15 AM EDT Temperature 37.3 C (99.1 F) 11/28/2024 11:15 AM EDT Respiratory Rate 20 11/28/2024 11:15 AM EDT Oxygen Saturation - - Inhaled Oxygen Concentration - - Weight 94.8 kg (209 lb) 11/28/2024 11:15 AM EDT Height - - Body Mass Index - - Plan of Treatment Health Maintenance Due Date Last Done Comments CT Colonography 1959 Colonoscopy 1959 Colorectal Cancer Screening 1959 FIT DNA/Cologuard 1959 FIT 1959 FOBT 1959 Lipid Panel 1959 Sigmoidoscopy 1959 Hepatitis C Screening 1977 Pap Smear 1980 Cervical Cancer Screening 1989 HPV/Cotest 1989 Mammogram 1999 DTaP/Tdap/Td Vaccines (1 - Tdap) 10/13/2003 10/12/2003, 04/29/2002 Pneumococcal Vaccine: 50+ Years (2 of 2 - PCV) 2009 10/03/2004 COVID-19 Vaccine (8 - 2023- season) 2024 01/09/2024, 01/05/2023, 03/28/2022, Additional history exists Influenza Vaccine (#1) 2024 , 01/05/2023, 12/20/2021, Additional history exists Alcohol/Substance Use Screening 11/28/2025 11/28/2024 Depression Screening 11/28/2025 11/28/2024, 11/29/19 SDOH Screening 11/28/2025 11/28/2024 Tobacco Screening 11/28/2025 11/28/2024 RSV Patients and Patients Aged 60 years or older (1 - 1-dose 75+ series) 2034 Zoster Vaccines Completed 09/29/2023, 01/05/2023 HIB Vaccines [...] patient's age to complete this topic Meningococcal Vaccine Aged Out No gordy jevon eligible based on patient's age to complete this topic RSV under 20 months Aged Out No longe r eligible based on patient's age to complete this topic Rotavirus Vaccines Aged Out No longer eligible based on patient's age to complete this topic Procedures Procedure Name Priority Date/Time Associated Diagnosis Comments POCT TYSON-14 URINE DRUG SCREEN Routine 12/15/2024 10:12 AM EDT Opioid type dependence, continuous (CMS/HCC) POCT TYSON-14 URINE DRUG SCREEN Routine 12/01/2024 1:52 PM EDT Uncomplicated opioid dependence (CMS/HCC) POCT TYSON-14 URINE DRUG SCREEN Routine 11/28/2024 11:17 AM EDT Chronic prescription opiate use from Last 3 Months Results * (ABNORMAL) POCT TYSON-14 Urine Drug Screen (12/15/2024 10:12 AM EDT) Only the most recent of3 resultswithin the time period is included. THC Negative Negative Cocaine Screen, Urine Negative Negative Opiate Screen, Urine Negative Negative Methamphetamine Screen Urine Negative Negative Amphetamine Screen, Urine Negative Negative Benzodiazepines Screen, Urine Positive(A) Negative Barbiturate Screen, Urine Negative Negative Methadone Screen, Urine Negative Negative Buprenophine Screen, Urine Positive(A) Negative TCA, Urine Negative Negative MDMA Urine Negative Negative ng/mL Oxycodone Screen, Urine Negative Negative Phencyclidine (PCP), Urine Negative Negative Fentanyl, Urine Negative Negative Urine Urine specimen obtained by clean catch procedure / Unknown 12/15/2024 10:12 AM EDT Jonathan Baeza MD POINT OF CARE TEST ENTER/EDIT OR DERABLES Final Result from Last 3 Months Insurance [employer]
== END 2025-02-16 13:34 | disposition home or self-care (01) ==
LOC: HO.US 13:33
PROVIDERS: PCP Internal Medicine; Visit Provider Internal Medicine
DX: M79.89 Other specified soft tissue disorders (principal)
CPT/HCPCS: 93971

== ENCOUNTER → 2025-02-16 13:35 | Outpatient (BNV) | payer MEDICARE, SELFPAY | PROVIDERS: PCP Internal Medicine; Visit Provider Radiology Diagnostic Ultrasound | DX: R22.31 Localized swelling, mass and lump, right upper limb (principal) | CPT/HCPCS: 93971 ==